=== PATIENT | male | born 1960 | race Asian ===

== ENCOUNTER 2019-04-11 11:02 | Inpatient (IN) | payer MEDICAID, OTHER ==
[~2019-04-11] VITALS: Ht 172.7 cm; Wt 63.0 kg
--- NOTE | 2019-04-11 11:28 | NUR ---
PT BASHIR GUZMAN AFTER BEING FOUND DOWN AT HOME. FOUND IN A POOL OF VOMIT. HAS LLE AND LUE WEAKNESS- BOTH ARE FLACCID. THIS IS NEW FOR THE PT. LAST KNOWN WELL TIME LAST NIGHT. PT HAS BEEN TAKEN TO AND IS NOW BACK FROM [place]. PT'S SISTER IS AT BEDSIDE HELPING WITH MEDICAL HX AND MED REC. PT IS NOT VERBAL AT THIS TIME. MED REC COMPLETED TO THE BEST OF THIS RN'S ABILITY. PT CURRENTLY RESTING ON [employer]. NADN. VSS. CONNECTED TO MONITOR. PER THOMAS BS 117. PT PRESENT WITH FACIAL ABSCESS TO RIGHT SIDE OF FOREHEAD THAT HAS BEEN PRESENT FOR MONTHS PER SISTER.
[2019-04-11] MEDS ORDERED: ALLOPURINOL (11:32)
--- NOTE | 2019-04-11 11:38 | NUR ---
RADIOLOGY AT BEDSIDE.
[2019-04-11 11:51] LABS: BASOPHILS # (AUTO) 0.02 x10^3/uL (0-0.1); BASOPHILS % (AUTO) 0 % (0-1); EOSINOPHILS # (AUTO) 0.01 x10^3/uL (0-0.4); EOSINOPHILS % (AUTO) 0 % (1-7); LYMPHOCYTES # (AUTO) 0.98 x10^3/uL (1-3.4); LYMPHOCYTES % (AUTO) 7 % (22-44); MD NO; MEAN CORPUSCULAR HEMOGLOBIN 33.5 pg (27.5-34.5); MEAN CORPUSCULAR HGB CONC 33.5 g/dL (33.2-36.2); MEAN PLATELET VOLUME 6.8 fL (7.4-10.4); MONOCYTES # (AUTO) 1.09 x10^3/uL (0.2-0.8); MONOCYTES % (AUTO) 7 % (2-9); NEUTROPHILS # (AUTO) 12.85 x10^3/uL (1.8-6.8); NEUTROPHILS % (AUTO) 86 % (42-75); PLATELET COUNT 313 x10^3/uL (130-400); RED BLOOD COUNT 5.31 x10^6/uL (4.38-5.82); RED CELL DISTRIBUTION WIDTH 12.4 % (9.4-14.8)
--- NOTE | 2019-04-11 12:01 | NUR ---
PT STRAIGHT CATH'D AT THIS TIME. URINE COLLECTED. PT RESTING ON MILDRED. BILL. HYPERTENSIVE- WILL ALERT .
[2019-04-11 12:05] LABS: ALANINE AMINOTRANSFERASE 36 U/L (12-78); ALBUMIN 4.1 g/dL (3.4-5.0); ANION GAP 10 mmol/L (5-15); CALCIUM 8.9 mg/dL (8.5-10.1); CHLORIDE 106 mmol/L (98-107); CREATININE 0.95 mg/dL (0.7-1.3)
[2019-04-11 12:06] LABS: ALKALINE PHOSPHATASE 80 U/L (45-117); TOTAL PROTEIN 8.9 g/dL (6.4-8.2)
--- NOTE | 2019-04-11 12:08 | NUR ---
PT NOTED TO HAVE CEREBRAL BLEED W 12 MM SHIFT PT MOVVED TO T3 ON FULL MONITOR
--- NOTE | 2019-04-11 12:09 | NUR ---
REPORT GIVEN TO KEERTHI ZARAGOZA.
[2019-04-11 12:12] LABS: INTERNATIONAL NORMALIZED RATIO 1.01 (0.93-1.1); PROTHROMBIN TIME 10.6 Seconds (9.6-11.5)
[2019-04-11 12:12] LABS: MICROSCOPIC NOT IND
[2019-04-11 12:13] LABS: CULTURE INDICATED? NO
[2019-04-11 12:27] LABS: AMPHETAMINE SCREEN, URINE Negative (Negative)
[2019-04-11 12:28] LABS: BARBITURATE SCREEN, URINE Negative (Negative); BENZODIAZEPINE SCREEN, URINE Negative (Negative); CANNABINOID SCREEN, URINE Negative (Negative); COCAINE SCREEN, URINE Negative (Negative); METHADONE SCREEN, URINE Negative (Negative); OPIATE SCREEN, URINE Negative (Negative)
[2019-04-11] MEDS ORDERED: LABETALOL 5 MG/ML SYR. (IV ONLY) IVPush ONE (12:30)
[2019-04-11] MEDS ORDERED: LABETALOL 5MG/ML, 20ML IVPush ONE (12:30)
--- NOTE | 2019-04-11 12:33 | NUR ---
O2 STARTED NC AT 2 LPM PT REMAINS RESPONSIVE TO LOUD VERBAL OF PAINFUL STIMULI WILL FOLLOW LIMITED COMMANDS
[2019-04-11] MEDS ORDERED: EPINEPHRINE 1 MG/ML, 1ML ONE (12:49)
[2019-04-11] MEDS ORDERED: BUPIVACAINE/PF 0.5% ONE (12:49)
[2019-04-11] MEDS ORDERED: THROMBIN 5,000 UNIT VIAL TP ONE (12:49)
[2019-04-11] MEDS ORDERED: BACITRACIN 50,000 UNIT ONE (12:49)
[2019-04-11] MEDS ORDERED: LABETALOL 5MG/ML, 20ML ONE (12:50)
[2019-04-11] MEDS ORDERED: PHENYLEPHRINE 10 MG/ML ONE (12:50)
[2019-04-11] MEDS ORDERED: FENTANYL PF 250 MCG/5ML ONE (12:53)
[2019-04-11] MEDS ORDERED: MANNITOL PMX 20% 500 ML ONE (12:55)
[2019-04-11] MEDS ORDERED: LEVETIRACETAM 1,000 MG in SODIUM CHLORIDE 0.9% 100 ML IV ONE (13:00)
--- NOTE | 2019-04-11 13:01 | NUR ---
REPORT TO OR GIVEN TRANSPORTED TO OR NO CONDITION CHANGE
[2019-04-11] MEDS ORDERED: PROPOFOL 50 ML ONE (13:48)
[2019-04-11] MEDS ORDERED: ROCURONIUM 10MG/ML,5ML ONE ×2 (13:49)
[2019-04-11] MEDS ORDERED: DEXAMETHASONE 4 MG/ML, 1ML ONE (13:49)
[2019-04-11] MEDS ORDERED: PROPOFOL 10 MG/ML, 20ML ONE (13:49)
[2019-04-11] MEDS ORDERED: CEFAZOLIN 1,000 MG ONE (13:49)
[2019-04-11] MEDS ORDERED: ACETAMINOPHEN 325 MG TABLET PO PRN (15:00)
[2019-04-11] MEDS ORDERED: ONDANSETRON 2MG/ML, 2ML IVPush PRN (15:00)
[2019-04-11] MEDS: SODIUM CHLORIDE 0.9% 1,000 ML IV SCH (15:29)
[2019-04-11] MEDS ORDERED: SENNA 176 MG/5 ML ORAL SOL NG PRN (15:30)
[2019-04-11] MEDS ORDERED: PHARMACY MAY ADJ FOR RENAL FX MC SCH (15:30)
[2019-04-11] MEDS ORDERED: DEXTROSE 4 GM TAB.CHEW PO PRN (15:30)
[2019-04-11] MEDS ORDERED: SENNA/DOCUSATE TABLET NG PRN (15:30)
[2019-04-11] MEDS ORDERED: LIDOCAINE-MPF 1%, 2ML ENDO PRN (15:30)
[2019-04-11] MEDS ORDERED: BISACODYL 10 MG SUPP PR PRN (15:30)
[2019-04-11] MEDS ORDERED: DEXTROSE 50%, 50ML SYRINGE IVPush PRN (15:30)
[2019-04-11] MEDS ORDERED: GLUCAGON 1 MG IM PRN (15:30)
[2019-04-11] MEDS: AMPICILLIN/SULBACTAM 3 GM in SODIUM CHLORIDE 0.9% 100 ML IV SCH ×2 (16:14→21:09)
[2019-04-11] MEDS: PROPOFOL 100 ML IV PRN ×2 (16:21→23:13)
[2019-04-11] MEDS ORDERED: LACTATED RINGERS 500 ML IVBOLUS ONE (17:00)
[2019-04-11 19:00] LABS: TROPONIN I < 0.015 ng/mL (0.000-0.045)
[2019-04-11] MEDS: FENTANYL PF 100 MCG/2ML IVPush PRN ×2 (19:43→20:08)
[2019-04-11] MEDS: LEVETIRACETAM 500 MG in SODIUM CHLORIDE 0.9% 100 ML IV SCH (19:46)
[2019-04-11] MEDS: FAMOTIDINE 20 MG/2 ML IVPush SCH (21:09)
[2019-04-11] MEDS: SODIUM CHLORIDE FLUSH 10ML SYR IVF SCH (21:09)
[2019-04-11 22:30] LABS: TROPONIN I < 0.015 ng/mL (0.000-0.045)
[2019-04-12] MEDS: FENTANYL PF 100 MCG/2ML IVPush PRN ×5 (01:30→19:39)
[2019-04-12] MEDS: SODIUM CHLORIDE 0.9% 1,000 ML IV SCH ×2 (02:21→12:44)
[2019-04-12] MEDS: AMPICILLIN/SULBACTAM 3 GM in SODIUM CHLORIDE 0.9% 100 ML IV SCH ×2 (02:31→09:06)
[2019-04-12 04:00] VITALS: BP 118/58
[2019-04-12 04:30] LABS: MEAN CORPUSCULAR HEMOGLOBIN 33.6 pg (27.5-34.5); MEAN CORPUSCULAR HGB CONC 33.5 g/dL (33.2-36.2); MEAN CORPUSCULAR VOLUME 100.4 fL (81-97); PLATELET COUNT 266 x10^3/uL (130-400); RED BLOOD COUNT 4.13 x10^6/uL (4.38-5.82); RED CELL DISTRIBUTION WIDTH 12.6 % (9.4-14.8)
[2019-04-12 04:33] LABS: ALANINE AMINOTRANSFERASE 24 U/L (12-78); ALBUMIN 2.9 g/dL (3.4-5.0); ANION GAP 8 mmol/L (5-15); CALCIUM 7.1 mg/dL (8.5-10.1); CHLORIDE 111 mmol/L (98-107); CREATININE 0.93 mg/dL (0.7-1.3)
[2019-04-12 04:35] LABS: ALKALINE PHOSPHATASE 56 U/L (45-117); BILIRUBIN,TOTAL 0.6 mg/dL (0.2-1.0); TOTAL PROTEIN 6.6 g/dL (6.4-8.2)
[2019-04-12 05:22] LABS: BASOPHILS # (AUTO) 0.04 x10^3/uL (0-0.1); BASOPHILS % (AUTO) 0 % (0-1); EOSINOPHILS # (AUTO) 0.01 x10^3/uL (0-0.4); EOSINOPHILS % (AUTO) 0 % (1-7); LYMPHOCYTES # (AUTO) 1.44 x10^3/uL (1-3.4); LYMPHOCYTES % (AUTO) 8 % (22-44); MD SCAN; MONOCYTES # (AUTO) 2.13 x10^3/uL (0.2-0.8); MONOCYTES % (AUTO) 11 % (2-9); NEUTROPHILS % (AUTO) 81 % (42-75)
[2019-04-12] MEDS: PROPOFOL 100 ML IV PRN ×3 (06:39→18:09)
[2019-04-12] MEDS: LEVETIRACETAM 500 MG in SODIUM CHLORIDE 0.9% 100 ML IV SCH ×2 (08:04→19:40)
[2019-04-12] MEDS: SENNA/DOCUSATE TABLET PO SCH (09:00)
[2019-04-12] MEDS: SODIUM CHLORIDE FLUSH 10ML SYR IVF SCH ×2 (09:06→20:58)
[2019-04-12] MEDS: FAMOTIDINE 20 MG/2 ML IVPush SCH ×2 (09:06→20:58)
[2019-04-12] MEDS ORDERED: POTASSIUM CHLORIDE 40 MEQ in SODIUM CHLORIDE 0.9% 500 ML IV ONE (09:30)
[2019-04-12 09:41] LABS: MICROSCOPIC INDICATED
[2019-04-12 09:56] LABS: CULTURE INDICATED? NO
[2019-04-12] MEDS: MEROPENEM 1 GM in SODIUM CHLORIDE 0.9% 100 ML IV SCH ×2 (10:21→18:08)
--- NOTE | 2019-04-12 10:31 | NUR ---
TF GOAL: w/ propofol: PROMOTE @ 70ml/hr off propofol: 75ml/hr
[2019-04-12] MEDS: LABETALOL 5MG/ML, 20ML IVPush PRN (20:10)
[2019-04-12] MEDS: ENALAPRILAT 1.25 MG/ML, 2ML IVPush PRN (20:46)
[2019-04-12] MEDS: morphine SULFATE 10 MG/ML, 1ML IVPush PRN (20:53)
[2019-04-13] MEDS: PROPOFOL 100 ML IV PRN ×3 (01:26→20:01)
[2019-04-13] MEDS: MEROPENEM 1 GM in SODIUM CHLORIDE 0.9% 100 ML IV SCH ×3 (01:41→18:28)
[2019-04-13 03:52] LABS: MEAN CORPUSCULAR HEMOGLOBIN 33.7 pg (27.5-34.5); MEAN CORPUSCULAR HGB CONC 33.6 g/dL (33.2-36.2); MEAN CORPUSCULAR VOLUME 100.4 fL (81-97); PLATELET COUNT 236 x10^3/uL (130-400); RED BLOOD COUNT 3.69 x10^6/uL (4.38-5.82); RED CELL DISTRIBUTION WIDTH 12.8 % (9.4-14.8)
[2019-04-13 04:00] VITALS: BP 152/72
[2019-04-13] MEDS: FENTANYL PF 100 MCG/2ML IVPush PRN ×3 (04:06→14:42)
[2019-04-13 04:11] LABS: BASOPHILS # (AUTO) 0.01 x10^3/uL (0-0.1); BASOPHILS % (AUTO) 0 % (0-1); EOSINOPHILS # (AUTO) 0.02 x10^3/uL (0-0.4); EOSINOPHILS % (AUTO) 0 % (1-7); LYMPHOCYTES # (AUTO) 1.22 x10^3/uL (1-3.4); LYMPHOCYTES % (AUTO) 10 % (22-44); MD SCAN; MONOCYTES # (AUTO) 1.04 x10^3/uL (0.2-0.8); MONOCYTES % (AUTO) 8 % (2-9); NEUTROPHILS # (AUTO) 10.29 x10^3/uL (1.8-6.8); NEUTROPHILS % (AUTO) 82 % (42-75)
[2019-04-13 05:05] LABS: ANION GAP 5 mmol/L (5-15); CALCIUM 7.8 mg/dL (8.5-10.1); CHLORIDE 113 mmol/L (98-107); CREATININE 0.77 mg/dL (0.7-1.3)
[2019-04-13] MEDS: SODIUM CHLORIDE 0.9% 1,000 ML IV SCH ×2 (05:06→16:56)
[2019-04-13] MEDS: SENNA/DOCUSATE TABLET PO SCH (07:58)
[2019-04-13] MEDS: LEVETIRACETAM 500 MG in SODIUM CHLORIDE 0.9% 100 ML IV SCH ×2 (07:58→20:04)
[2019-04-13] MEDS: FAMOTIDINE 20 MG/2 ML IVPush SCH ×2 (07:58→22:01)
[2019-04-13] MEDS: SODIUM CHLORIDE FLUSH 10ML SYR IVF SCH ×2 (09:45→22:02)
[2019-04-13] MEDS ORDERED: FUROSEMIDE 20 MG/2 ML IV ONE (10:00)
[2019-04-14 01:09] LABS: ANION GAP 4 mmol/L (5-15); CALCIUM 8.2 mg/dL (8.5-10.1); CHLORIDE 112 mmol/L (98-107); CREATININE 0.77 mg/dL (0.7-1.3)
[2019-04-14 01:17] LABS: OSMOLALITY,URINE 328 mOsm/kg (500-850)
[2019-04-14] MEDS: MEROPENEM 1 GM in SODIUM CHLORIDE 0.9% 100 ML IV SCH ×3 (01:48→18:11)
[2019-04-14] MEDS: PROPOFOL 100 ML IV PRN ×5 (01:48→22:46)
[2019-04-14] MEDS: SODIUM CHLORIDE 0.9% 1,000 ML IV SCH ×3 (01:49→22:45)
[2019-04-14 02:01] LABS: SODIUM,URINE RANDOM 124 mmol/L
[2019-04-14] MEDS: FENTANYL PF 100 MCG/2ML IVPush PRN ×4 (03:56→20:52)
[2019-04-14 05:12] LABS: BASOPHILS # (AUTO) 0.01 x10^3/uL (0-0.1); BASOPHILS % (AUTO) 0 % (0-1); EOSINOPHILS # (AUTO) 0.06 x10^3/uL (0-0.4); EOSINOPHILS % (AUTO) 1 % (1-7); LYMPHOCYTES # (AUTO) 1.18 x10^3/uL (1-3.4); LYMPHOCYTES % (AUTO) 12 % (22-44); MD NO; MEAN CORPUSCULAR HEMOGLOBIN 33.7 pg (27.5-34.5); MEAN CORPUSCULAR HGB CONC 33.7 g/dL (33.2-36.2); MEAN PLATELET VOLUME 6.9 fL (7.4-10.4); MONOCYTES # (AUTO) 0.86 x10^3/uL (0.2-0.8); MONOCYTES % (AUTO) 9 % (2-9); NEUTROPHILS # (AUTO) 7.39 x10^3/uL (1.8-6.8); NEUTROPHILS % (AUTO) 78 % (42-75); PLATELET COUNT 265 x10^3/uL (130-400); RED BLOOD COUNT 3.59 x10^6/uL (4.38-5.82); RED CELL DISTRIBUTION WIDTH 12.5 % (9.4-14.8)
[2019-04-14 05:19] LABS: ANION GAP 6 mmol/L (5-15); CALCIUM 8.1 mg/dL (8.5-10.1); CHLORIDE 112 mmol/L (98-107)
[2019-04-14 05:47] LABS: CREATININE 0.69 mg/dL (0.7-1.3); TRIGLYCERIDES 239 mg/dL (50-200)
[2019-04-14] MEDS: SODIUM CHLORIDE FLUSH 10ML SYR IVF SCH ×2 (07:20→20:52)
[2019-04-14] MEDS: LEVETIRACETAM 500 MG in SODIUM CHLORIDE 0.9% 100 ML IV SCH ×2 (07:44→20:06)
[2019-04-14] MEDS: FAMOTIDINE 20 MG/2 ML IVPush SCH ×2 (09:05→20:52)
[2019-04-14] MEDS: SENNA/DOCUSATE TABLET PO SCH (09:05)
[2019-04-14] MEDS: LACTULOSE 20 GM/30 ML UDC NG PRN (09:08)
[2019-04-14] MEDS ORDERED: POTASSIUM CHLORIDE 40 MEQ in SODIUM CHLORIDE 0.9% 500 ML IV ONE (09:30)
[2019-04-14] MEDS ORDERED: MANNITOL 0.25 GM/ML, 50ML IVPush PRN (15:00)
[2019-04-14] MEDS ORDERED: NOREPINEPHRINE 4 MG in SODIUM CHLORIDE 0.9% 246 ML IV PRN (15:30)
[2019-04-14 19:12] LABS: ANION GAP 4 mmol/L (5-15); CALCIUM 8.2 mg/dL (8.5-10.1); CHLORIDE 111 mmol/L (98-107); CREATININE 0.71 mg/dL (0.7-1.3)
[2019-04-14 19:23] LABS: OSMOLALITY,URINE 728 mOsm/kg (500-850)
[2019-04-14] MEDS: POLYETHYLENE GLYCOL 17 GM PACKET PO PRN (21:14)
[2019-04-15] MEDS: FENTANYL PF 100 MCG/2ML IVPush PRN (00:32)
[2019-04-15] MEDS: MEROPENEM 1 GM in SODIUM CHLORIDE 0.9% 100 ML IV SCH ×3 (02:07→18:13)
[2019-04-15] MEDS: PROPOFOL 100 ML IV PRN (03:01)
[2019-04-15] MEDS: morphine SULFATE 10 MG/ML, 1ML IVPush PRN ×4 (03:01→22:19)
[2019-04-15 04:09] LABS: BASOPHILS # (AUTO) 0.03 x10^3/uL (0-0.1); BASOPHILS % (AUTO) 0 % (0-1); EOSINOPHILS # (AUTO) 0.17 x10^3/uL (0-0.4); EOSINOPHILS % (AUTO) 2 % (1-7); LYMPHOCYTES # (AUTO) 1.09 x10^3/uL (1-3.4); LYMPHOCYTES % (AUTO) 13 % (22-44); MD NO; MEAN CORPUSCULAR HEMOGLOBIN 33.6 pg (27.5-34.5); MEAN CORPUSCULAR HGB CONC 33.6 g/dL (33.2-36.2); MEAN PLATELET VOLUME 6.8 fL (7.4-10.4); MONOCYTES % (AUTO) 9 % (2-9); NEUTROPHILS # (AUTO) 6.47 x10^3/uL (1.8-6.8); NEUTROPHILS % (AUTO) 76 % (42-75); PLATELET COUNT 281 x10^3/uL (130-400); RED BLOOD COUNT 3.63 x10^6/uL (4.38-5.82); RED CELL DISTRIBUTION WIDTH 12.3 % (9.4-14.8)
[2019-04-15 04:19] LABS: ANION GAP 4 mmol/L (5-15); CHLORIDE 109 mmol/L (98-107)
[2019-04-15] MEDS: LEVETIRACETAM 500 MG in SODIUM CHLORIDE 0.9% 100 ML IV SCH ×2 (08:22→19:37)
[2019-04-15] MEDS: SODIUM CHLORIDE FLUSH 10ML SYR IVF SCH ×2 (08:22→22:19)
[2019-04-15] MEDS: SODIUM CHLORIDE 0.9% 1,000 ML IV SCH ×2 (08:50→19:54)
[2019-04-15] MEDS: SENNA/DOCUSATE TABLET PO SCH (08:50)
[2019-04-15] MEDS: FAMOTIDINE 20 MG/2 ML IVPush SCH ×2 (08:50→22:19)
[2019-04-15] MEDS: LACTULOSE 20 GM/30 ML UDC NG PRN (19:25)
[2019-04-15] MEDS: ENALAPRILAT 1.25 MG/ML, 2ML IVPush PRN (22:47)
[2019-04-16] MEDS: BISACODYL 10 MG SUPP PR PRN (01:33)
[2019-04-16] MEDS: MEROPENEM 1 GM in SODIUM CHLORIDE 0.9% 100 ML IV SCH ×3 (02:09→18:00)
[2019-04-16] MEDS: morphine SULFATE 10 MG/ML, 1ML IVPush PRN ×4 (02:51→16:05)
[2019-04-16 03:51] LABS: BASOPHILS # (AUTO) 0.02 x10^3/uL (0-0.1); BASOPHILS % (AUTO) 0 % (0-1); EOSINOPHILS # (AUTO) 0.12 x10^3/uL (0-0.4); EOSINOPHILS % (AUTO) 2 % (1-7); LYMPHOCYTES # (AUTO) 1.44 x10^3/uL (1-3.4); LYMPHOCYTES % (AUTO) 18 % (22-44); MD NO; MEAN CORPUSCULAR HEMOGLOBIN 33.3 pg (27.5-34.5); MEAN CORPUSCULAR HGB CONC 33.8 g/dL (33.2-36.2); MEAN CORPUSCULAR VOLUME 98.6 fL (81-97); MEAN PLATELET VOLUME 6.8 fL (7.4-10.4); MONOCYTES # (AUTO) 0.77 x10^3/uL (0.2-0.8); MONOCYTES % (AUTO) 10 % (2-9); NEUTROPHILS # (AUTO) 5.63 x10^3/uL (1.8-6.8); NEUTROPHILS % (AUTO) 71 % (42-75); PLATELET COUNT 328 x10^3/uL (130-400); RED BLOOD COUNT 3.76 x10^6/uL (4.38-5.82); RED CELL DISTRIBUTION WIDTH 12.2 % (9.4-14.8)
[2019-04-16 04:01] LABS: ANION GAP 6 mmol/L (5-15); CALCIUM 8.1 mg/dL (8.5-10.1); CHLORIDE 106 mmol/L (98-107); CREATININE 0.67 mg/dL (0.7-1.3)
[2019-04-16] MEDS: ENALAPRILAT 1.25 MG/ML, 2ML IVPush PRN (04:04)
[2019-04-16] MEDS: SODIUM CHLORIDE 0.9% 1,000 ML IV SCH ×2 (06:45→18:00)
[2019-04-16] MEDS: LEVETIRACETAM 500 MG in SODIUM CHLORIDE 0.9% 100 ML IV SCH ×2 (08:11→19:58)
[2019-04-16] MEDS: SENNA/DOCUSATE TABLET PO SCH (09:00)
[2019-04-16] MEDS: FAMOTIDINE 20 MG/2 ML IVPush SCH ×2 (09:17→21:40)
[2019-04-16] MEDS: SODIUM CHLORIDE FLUSH 10ML SYR IVF SCH ×2 (09:17→21:41)
[2019-04-17] MEDS: morphine SULFATE 10 MG/ML, 1ML IVPush PRN ×3 (00:02→19:26)
[2019-04-17] MEDS: MEROPENEM 1 GM in SODIUM CHLORIDE 0.9% 100 ML IV SCH ×3 (02:16→18:01)
[2019-04-17] MEDS: SODIUM CHLORIDE 0.9% 1,000 ML IV SCH (05:10)
[2019-04-17 05:29] LABS: MEAN CORPUSCULAR HEMOGLOBIN 33.3 pg (27.5-34.5); MEAN CORPUSCULAR HGB CONC 33.7 g/dL (33.2-36.2); MEAN PLATELET VOLUME 6.2 fL (7.4-10.4); PLATELET COUNT 365 x10^3/uL (130-400); RED BLOOD COUNT 3.85 x10^6/uL (4.38-5.82); RED CELL DISTRIBUTION WIDTH 12.4 % (9.4-14.8)
[2019-04-17 05:39] LABS: ANION GAP 6 mmol/L (5-15); CHLORIDE 107 mmol/L (98-107); CREATININE 0.71 mg/dL (0.7-1.3); TRIGLYCERIDES 154 mg/dL (50-200)
[2019-04-17 05:42] LABS: CREATINE KINASE, TOTAL 176 U/L (39-308)
[2019-04-17 05:53] LABS: BASOPHILS % (AUTO) 0 % (0-1); EOSINOPHILS # (AUTO) 0.28 x10^3/uL (0-0.4); EOSINOPHILS % (AUTO) 3 % (1-7); LYMPHOCYTES % (AUTO) 12 % (22-44); MD SCAN; MONOCYTES # (AUTO) 0.41 x10^3/uL (0.2-0.8); MONOCYTES % (AUTO) 4 % (2-9); NEUTROPHILS # (AUTO) 8.32 x10^3/uL (1.8-6.8); NEUTROPHILS % (AUTO) 81 % (42-75)
[2019-04-17] MEDS: LEVETIRACETAM 500 MG in SODIUM CHLORIDE 0.9% 100 ML IV SCH ×2 (08:42→21:34)
[2019-04-17] MEDS: SENNA/DOCUSATE TABLET PO SCH (08:43)
[2019-04-17] MEDS: FAMOTIDINE 20 MG/2 ML IVPush SCH ×2 (08:43→21:34)
[2019-04-17] MEDS: SODIUM CHLORIDE FLUSH 10ML SYR IVF SCH ×2 (08:51→21:35)
[2019-04-17] MEDS ORDERED: SODIUM CHLORIDE 0.9% 1,000 ML IV SCH (09:00)
[2019-04-17] MEDS: hydrALAzine 20 MG/ML, 1ML IV PRN ×3 (12:50→21:46)
[2019-04-17] MEDS: ENALAPRILAT 1.25 MG/ML, 2ML IVPush PRN ×2 (13:14→18:00)
[2019-04-17] MEDS: LABETALOL 5MG/ML, 20ML IVPush PRN (18:59)
[2019-04-18] MEDS: MEROPENEM 1 GM in SODIUM CHLORIDE 0.9% 100 ML IV SCH ×3 (03:15→18:00)
[2019-04-18 04:16] LABS: BASOPHILS # (AUTO) 0.01 x10^3/uL (0-0.1); BASOPHILS % (AUTO) 0 % (0-1); EOSINOPHILS # (AUTO) 0.11 x10^3/uL (0-0.4); EOSINOPHILS % (AUTO) 1 % (1-7); LYMPHOCYTES # (AUTO) 0.77 x10^3/uL (1-3.4); LYMPHOCYTES % (AUTO) 7 % (22-44); MD NO; MEAN CORPUSCULAR HEMOGLOBIN 33.6 pg (27.5-34.5); MEAN CORPUSCULAR HGB CONC 33.5 g/dL (33.2-36.2); MEAN CORPUSCULAR VOLUME 100.2 fL (81-97); MEAN PLATELET VOLUME 6.6 fL (7.4-10.4); MONOCYTES # (AUTO) 1.03 x10^3/uL (0.2-0.8); MONOCYTES % (AUTO) 9 % (2-9); NEUTROPHILS # (AUTO) 9.61 x10^3/uL (1.8-6.8); NEUTROPHILS % (AUTO) 83 % (42-75); PLATELET COUNT 409 x10^3/uL (130-400); RED CELL DISTRIBUTION WIDTH 12.3 % (9.4-14.8)
[2019-04-18 04:22] LABS: ANION GAP 6 mmol/L (5-15); CALCIUM 8.4 mg/dL (8.5-10.1); CHLORIDE 104 mmol/L (98-107); CREATININE 0.78 mg/dL (0.7-1.3)
[2019-04-18] MEDS: morphine SULFATE 10 MG/ML, 1ML IVPush PRN (04:51)
[2019-04-18] MEDS: ENALAPRILAT 1.25 MG/ML, 2ML IVPush PRN (06:38)
[2019-04-18] MEDS: LEVETIRACETAM 500 MG in SODIUM CHLORIDE 0.9% 100 ML IV SCH ×2 (07:44→19:32)
[2019-04-18] MEDS ORDERED: SCOPOLAMINE PATCH, 1.5MG PATCH.TD72 TD ONE (08:30)
[2019-04-18] MEDS: LABETALOL 5MG/ML, 20ML IVPush PRN ×2 (09:49→22:24)
[2019-04-18] MEDS: SODIUM CHLORIDE FLUSH 10ML SYR IVF SCH ×2 (09:50→20:44)
[2019-04-18] MEDS: SCOPOLAMINE PATCH, 1.5MG PATCH.TD72 TD SCH (10:00)
[2019-04-18] MEDS: FAMOTIDINE 20 MG/2 ML IVPush SCH ×2 (10:36→20:44)
[2019-04-18] MEDS: SENNA/DOCUSATE TABLET PO SCH (10:37)
[2019-04-19] MEDS: morphine SULFATE 10 MG/ML, 1ML IVPush PRN ×3 (00:08→23:22)
[2019-04-19] MEDS: ENALAPRILAT 1.25 MG/ML, 2ML IVPush PRN (02:37)
[2019-04-19 04:28] LABS: MEAN CORPUSCULAR HEMOGLOBIN 34.1 pg (27.5-34.5); MEAN CORPUSCULAR HGB CONC 34.1 g/dL (33.2-36.2); MEAN CORPUSCULAR VOLUME 99.9 fL (81-97); MEAN PLATELET VOLUME 6.4 fL (7.4-10.4); PLATELET COUNT 445 x10^3/uL (130-400); RED BLOOD COUNT 3.81 x10^6/uL (4.38-5.82); RED CELL DISTRIBUTION WIDTH 12.2 % (9.4-14.8)
[2019-04-19 04:36] LABS: ANION GAP 4 mmol/L (5-15); CALCIUM 8.5 mg/dL (8.5-10.1); CHLORIDE 105 mmol/L (98-107)
[2019-04-19 04:37] LABS: CREATININE 0.76 mg/dL (0.7-1.3)
[2019-04-19 05:59] LABS: BASOPHILS # (AUTO) 0.02 x10^3/uL (0-0.1); BASOPHILS % (AUTO) 0 % (0-1); EOSINOPHILS # (AUTO) 0.19 x10^3/uL (0-0.4); EOSINOPHILS % (AUTO) 2 % (1-7); LYMPHOCYTES # (AUTO) 1.28 x10^3/uL (1-3.4); LYMPHOCYTES % (AUTO) 10 % (22-44); MD SCAN; MONOCYTES % (AUTO) 12 % (2-9); NEUTROPHILS # (AUTO) 9.85 x10^3/uL (1.8-6.8); NEUTROPHILS % (AUTO) 77 % (42-75)
[2019-04-19] MEDS: SODIUM CHLORIDE FLUSH 10ML SYR IVF SCH ×2 (08:28→21:59)
[2019-04-19] MEDS: LEVETIRACETAM 500 MG in SODIUM CHLORIDE 0.9% 100 ML IV SCH (08:28)
[2019-04-19] MEDS: SENNA/DOCUSATE TABLET PO SCH (09:10)
[2019-04-19] MEDS: FAMOTIDINE 20 MG/2 ML IVPush SCH ×2 (09:10→21:59)
[2019-04-20] MEDS: POLYETHYLENE GLYCOL 17 GM PACKET PO PRN (01:28)
[2019-04-20] MEDS: morphine SULFATE 10 MG/ML, 1ML IVPush PRN (03:12)
[2019-04-20 04:18] LABS: BASOPHILS # (AUTO) 0.02 x10^3/uL (0-0.1); BASOPHILS % (AUTO) 0 % (0-1); EOSINOPHILS % (AUTO) 2 % (1-7); LYMPHOCYTES # (AUTO) 1.66 x10^3/uL (1-3.4); LYMPHOCYTES % (AUTO) 14 % (22-44); MD NO; MEAN CORPUSCULAR HEMOGLOBIN 33.5 pg (27.5-34.5); MEAN CORPUSCULAR HGB CONC 33.3 g/dL (33.2-36.2); MEAN CORPUSCULAR VOLUME 100.7 fL (81-97); MEAN PLATELET VOLUME 6.4 fL (7.4-10.4); MONOCYTES # (AUTO) 1.29 x10^3/uL (0.2-0.8); MONOCYTES % (AUTO) 11 % (2-9); NEUTROPHILS # (AUTO) 8.86 x10^3/uL (1.8-6.8); NEUTROPHILS % (AUTO) 74 % (42-75); PLATELET COUNT 524 x10^3/uL (130-400); RED BLOOD COUNT 4.02 x10^6/uL (4.38-5.82); RED CELL DISTRIBUTION WIDTH 12.1 % (9.4-14.8)
[2019-04-20 04:26] LABS: ANION GAP 7 mmol/L (5-15); CALCIUM 8.6 mg/dL (8.5-10.1); CHLORIDE 100 mmol/L (98-107); CREATININE 0.79 mg/dL (0.7-1.3); TRIGLYCERIDES 222 mg/dL (50-200)
[2019-04-20] MEDS: ACETAMINOPHEN 650 MG/20.3 ML UDC PO PRN (08:24)
[2019-04-20] MEDS: FAMOTIDINE 20 MG/2 ML IVPush SCH ×2 (08:24→20:30)
[2019-04-20] MEDS: SODIUM CHLORIDE FLUSH 10ML SYR IVF SCH ×2 (08:25→20:30)
[2019-04-20] MEDS: SENNA/DOCUSATE TABLET PO SCH (09:22)
[2019-04-21 04:50] LABS: MEAN CORPUSCULAR HEMOGLOBIN 33.6 pg (27.5-34.5); MEAN CORPUSCULAR HGB CONC 33.5 g/dL (33.2-36.2); MEAN CORPUSCULAR VOLUME 100.3 fL (81-97); MEAN PLATELET VOLUME 6.4 fL (7.4-10.4); PLATELET COUNT 616 x10^3/uL (130-400); RED BLOOD COUNT 4.25 x10^6/uL (4.38-5.82)
[2019-04-21 04:59] LABS: ANION GAP 8 mmol/L (5-15); CALCIUM 9.6 mg/dL (8.5-10.1); CHLORIDE 99 mmol/L (98-107); CREATININE 0.95 mg/dL (0.7-1.3)
[2019-04-21 05:05] LABS: BASOPHILS # (AUTO) 0.03 x10^3/uL (0-0.1); BASOPHILS % (AUTO) 0 % (0-1); EOSINOPHILS # (AUTO) 0.23 x10^3/uL (0-0.4); EOSINOPHILS % (AUTO) 2 % (1-7); LYMPHOCYTES # (AUTO) 1.39 x10^3/uL (1-3.4); LYMPHOCYTES % (AUTO) 9 % (22-44); MD SCAN; MONOCYTES # (AUTO) 1.54 x10^3/uL (0.2-0.8); MONOCYTES % (AUTO) 10 % (2-9); NEUTROPHILS # (AUTO) 11.91 x10^3/uL (1.8-6.8); NEUTROPHILS % (AUTO) 79 % (42-75)
[2019-04-21] MEDS: morphine SULFATE 10 MG/ML, 1ML IVPush PRN ×2 (05:53→14:36)
[2019-04-21] MEDS: FAMOTIDINE 20 MG/2 ML IVPush SCH ×2 (08:23→21:37)
[2019-04-21] MEDS: SENNA/DOCUSATE TABLET PO SCH (08:23)
[2019-04-21] MEDS: SODIUM CHLORIDE FLUSH 10ML SYR IVF SCH ×2 (08:24→21:37)
[2019-04-21] MEDS: SCOPOLAMINE PATCH, 1.5MG PATCH.TD72 TD SCH (10:30)
[2019-04-21] MEDS: LABETALOL 5MG/ML, 20ML IVPush PRN (14:51)
[2019-04-22 04:27] LABS: MEAN CORPUSCULAR HEMOGLOBIN 33.2 pg (27.5-34.5); MEAN CORPUSCULAR HGB CONC 33.4 g/dL (33.2-36.2); MEAN CORPUSCULAR VOLUME 99.5 fL (81-97); MEAN PLATELET VOLUME 6.4 fL (7.4-10.4); PLATELET COUNT 634 x10^3/uL (130-400); RED BLOOD COUNT 4.28 x10^6/uL (4.38-5.82); RED CELL DISTRIBUTION WIDTH 12.1 % (9.4-14.8)
[2019-04-22 04:39] LABS: ANION GAP 8 mmol/L (5-15); CALCIUM 9.2 mg/dL (8.5-10.1); CHLORIDE 99 mmol/L (98-107)
[2019-04-22 04:42] LABS: CREATININE 0.99 mg/dL (0.7-1.3)
[2019-04-22 04:50] LABS: BASOPHILS # (AUTO) 0.02 x10^3/uL (0-0.1); BASOPHILS % (AUTO) 0 % (0-1); EOSINOPHILS # (AUTO) 0.14 x10^3/uL (0-0.4); EOSINOPHILS % (AUTO) 1 % (1-7); LYMPHOCYTES # (AUTO) 1.79 x10^3/uL (1-3.4); LYMPHOCYTES % (AUTO) 10 % (22-44); MD SCAN; MONOCYTES % (AUTO) 9 % (2-9); NEUTROPHILS # (AUTO) 14.07 x10^3/uL (1.8-6.8); NEUTROPHILS % (AUTO) 80 % (42-75)
[2019-04-22] MEDS ORDERED: VANCOMYCIN PER PHARMACY MC PRN (07:00)
[2019-04-22] MEDS ORDERED: PHARMACOKINETIC MONITORING MC PRN (07:00)
[2019-04-22] MEDS ORDERED: PHARMACOKINETIC CONSULTATION MC ONE (07:00)
[2019-04-22] MEDS: PIPERACILLIN/TAZO/PMX 3.375GM 50 ML IV SCH ×3 (07:33→18:35)
[2019-04-22] MEDS: VANCOMYCIN 1,300 MG in SODIUM CHLORIDE 0.9% 250 ML IV SCH (07:34)
[2019-04-22] MEDS: FAMOTIDINE 20 MG/2 ML IVPush SCH ×2 (08:01→20:50)
[2019-04-22] MEDS: SENNA/DOCUSATE TABLET PO SCH (08:01)
[2019-04-22] MEDS: SODIUM CHLORIDE FLUSH 10ML SYR IVF SCH ×2 (08:02→20:50)
[2019-04-22] MEDS: morphine SULFATE 10 MG/ML, 1ML IVPush PRN ×2 (10:27→18:16)
[2019-04-22 10:36] LABS: MICROSCOPIC INDICATED
[2019-04-22 10:45] LABS: CULTURE INDICATED? YES
[2019-04-23] MEDS: PIPERACILLIN/TAZO/PMX 3.375GM 50 ML IV SCH ×4 (01:18→19:58)
[2019-04-23] MEDS: VANCOMYCIN 1,300 MG in SODIUM CHLORIDE 0.9% 250 ML IV SCH ×2 (02:38→20:32)
[2019-04-23] MEDS: morphine SULFATE 10 MG/ML, 1ML IVPush PRN (03:24)
[2019-04-23 04:22] LABS: MEAN CORPUSCULAR HEMOGLOBIN 33.4 pg (27.5-34.5); MEAN CORPUSCULAR HGB CONC 33.6 g/dL (33.2-36.2); MEAN CORPUSCULAR VOLUME 99.4 fL (81-97); MEAN PLATELET VOLUME 6.3 fL (7.4-10.4); PLATELET COUNT 642 x10^3/uL (130-400); RED BLOOD COUNT 4.04 x10^6/uL (4.38-5.82); RED CELL DISTRIBUTION WIDTH 12.1 % (9.4-14.8)
[2019-04-23 04:34] LABS: ANION GAP 7 mmol/L (5-15); CHLORIDE 103 mmol/L (98-107); CREATININE 0.96 mg/dL (0.7-1.3); TRIGLYCERIDES 163 mg/dL (50-200)
[2019-04-23 04:45] LABS: BASOPHILS # (AUTO) 0.01 x10^3/uL (0-0.1); BASOPHILS % (AUTO) 0 % (0-1); EOSINOPHILS # (AUTO) 0.64 x10^3/uL (0-0.4); EOSINOPHILS % (AUTO) 3 % (1-7); LYMPHOCYTES % (AUTO) 9 % (22-44); MD SCAN; MONOCYTES # (AUTO) 1.37 x10^3/uL (0.2-0.8); MONOCYTES % (AUTO) 7 % (2-9); NEUTROPHILS # (AUTO) 15.17 x10^3/uL (1.8-6.8); NEUTROPHILS % (AUTO) 80 % (42-75)
[2019-04-23] MEDS: FAMOTIDINE 20 MG/2 ML IVPush SCH ×2 (08:30→21:30)
[2019-04-23] MEDS: LACTULOSE 20 GM/30 ML UDC PO SCH ×2 (08:30→21:30)
[2019-04-23] MEDS: SODIUM CHLORIDE FLUSH 10ML SYR IVF SCH ×2 (08:30→21:30)
[2019-04-23] MEDS: SENNA/DOCUSATE TABLET PO SCH (08:31)
[2019-04-24] MEDS: PIPERACILLIN/TAZO/PMX 3.375GM 50 ML IV SCH ×4 (02:30→20:13)
[2019-04-24] MEDS: SENNA/DOCUSATE TABLET PO SCH (08:37)
[2019-04-24] MEDS: FAMOTIDINE 20 MG/2 ML IVPush SCH ×2 (08:37→21:04)
[2019-04-24] MEDS: SODIUM CHLORIDE FLUSH 10ML SYR IVF SCH ×2 (08:38→21:04)
[2019-04-24] MEDS: LACTULOSE 20 GM/30 ML UDC PO SCH ×2 (08:38→21:05)
[2019-04-24] MEDS: SCOPOLAMINE PATCH, 1.5MG PATCH.TD72 TD SCH (08:47)
[2019-04-24] MEDS: POLYETHYLENE GLYCOL 17 GM PACKET PO PRN (08:47)
[2019-04-24] MEDS: VANCOMYCIN 1,300 MG in SODIUM CHLORIDE 0.9% 250 ML IV SCH (15:10)
[2019-04-24] MEDS: hydrALAzine 20 MG/ML, 1ML IV PRN (17:51)
[2019-04-25] MEDS: PIPERACILLIN/TAZO/PMX 3.375GM 50 ML IV SCH ×4 (01:57→20:50)
[2019-04-25 04:29] LABS: ANION GAP 6 mmol/L (5-15); BASOPHILS # (AUTO) 0.09 x10^3/uL (0-0.1); BASOPHILS % (AUTO) 1 % (0-1); CALCIUM 9.1 mg/dL (8.5-10.1); CHLORIDE 104 mmol/L (98-107); EOSINOPHILS # (AUTO) 0.23 x10^3/uL (0-0.4); EOSINOPHILS % (AUTO) 2 % (1-7); LYMPHOCYTES # (AUTO) 1.31 x10^3/uL (1-3.4); LYMPHOCYTES % (AUTO) 10 % (22-44); MD NO; MEAN CORPUSCULAR HEMOGLOBIN 32.2 pg (27.5-34.5); MEAN CORPUSCULAR HGB CONC 32.9 g/dL (33.2-36.2); MEAN CORPUSCULAR VOLUME 97.8 fL (81-97); MEAN PLATELET VOLUME 6.4 fL (7.4-10.4); MONOCYTES # (AUTO) 0.89 x10^3/uL (0.2-0.8); MONOCYTES % (AUTO) 7 % (2-9); NEUTROPHILS # (AUTO) 10.28 x10^3/uL (1.8-6.8); NEUTROPHILS % (AUTO) 80 % (42-75); PLATELET COUNT 759 x10^3/uL (130-400); RED BLOOD COUNT 4.23 x10^6/uL (4.38-5.82)
[2019-04-25 04:30] LABS: CREATININE 0.84 mg/dL (0.7-1.3)
[2019-04-25] MEDS: VANCOMYCIN 1,300 MG in SODIUM CHLORIDE 0.9% 250 ML IV SCH (08:30)
[2019-04-25] MEDS ORDERED: VANCOMYCIN 1,300 MG in SODIUM CHLORIDE 0.9% 250 ML IV ONE (10:00)
[2019-04-25] MEDS: SENNA/DOCUSATE TABLET PO SCH (10:36)
[2019-04-25] MEDS: SODIUM CHLORIDE FLUSH 10ML SYR IVF SCH ×2 (10:36→20:51)
[2019-04-25] MEDS: LACTULOSE 20 GM/30 ML UDC PO SCH ×2 (10:36→20:50)
[2019-04-25] MEDS: FAMOTIDINE 20 MG/2 ML IVPush SCH ×2 (10:38→20:50)
[2019-04-25] MEDS ORDERED: VANCOMYCIN 1,400 MG in SODIUM CHLORIDE 0.9% 250 ML IV SCH (22:00)
[2019-04-26] MEDS: PIPERACILLIN/TAZO/PMX 3.375GM 50 ML IV SCH ×4 (01:51→21:50)
[2019-04-26 04:31] LABS: BASOPHILS # (AUTO) 0.07 x10^3/uL (0-0.1); BASOPHILS % (AUTO) 1 % (0-1); EOSINOPHILS % (AUTO) 3 % (1-7); LYMPHOCYTES # (AUTO) 1.61 x10^3/uL (1-3.4); LYMPHOCYTES % (AUTO) 13 % (22-44); MD NO; MEAN CORPUSCULAR HEMOGLOBIN 33.4 pg (27.5-34.5); MEAN CORPUSCULAR HGB CONC 33.7 g/dL (33.2-36.2); MEAN CORPUSCULAR VOLUME 99.2 fL (81-97); MEAN PLATELET VOLUME 6.4 fL (7.4-10.4); MONOCYTES # (AUTO) 0.88 x10^3/uL (0.2-0.8); MONOCYTES % (AUTO) 7 % (2-9); NEUTROPHILS # (AUTO) 9.19 x10^3/uL (1.8-6.8); NEUTROPHILS % (AUTO) 76 % (42-75); PLATELET COUNT 803 x10^3/uL (130-400); RED BLOOD COUNT 4.08 x10^6/uL (4.38-5.82); RED CELL DISTRIBUTION WIDTH 12.2 % (9.4-14.8)
[2019-04-26 04:41] LABS: ANION GAP 5 mmol/L (5-15); CALCIUM 9.2 mg/dL (8.5-10.1); CHLORIDE 104 mmol/L (98-107); CREATININE 0.91 mg/dL (0.7-1.3)
[2019-04-26 08:55] VITALS: BP 139/93
[2019-04-26] MEDS: SENNA/DOCUSATE TABLET PO SCH (09:00)
[2019-04-26] MEDS: LACTULOSE 20 GM/30 ML UDC PO SCH ×2 (09:01→21:00)
[2019-04-26] MEDS: FAMOTIDINE 20 MG/2 ML IVPush SCH ×2 (10:18→21:49)
[2019-04-26] MEDS: SODIUM CHLORIDE FLUSH 10ML SYR IVF SCH ×2 (10:19→21:50)
[2019-04-26 12:13] VITALS: BP 132/89
[2019-04-26] MEDS ORDERED: MORPHINE SULFATE 4 MG/ML, 1ML IVPush PRN (13:00)
[2019-04-26] MEDS ORDERED: METOPROLOL 1 MG/ML, 5ML IV PRN (13:00)
[2019-04-26] MEDS: LABETALOL 5MG/ML, 20ML IVPush PRN (14:12)
[2019-04-26] MEDS: D5%-0.45% NACL 1,000 ML IV SCH (17:17)
[2019-04-26 19:00] VITALS: BP 127/88
[2019-04-27 00:34] VITALS: BP 127/89
[2019-04-27] MEDS: PIPERACILLIN/TAZO/PMX 3.375GM 50 ML IV SCH ×4 (04:08→22:53)
[2019-04-27 04:56] LABS: BASOPHILS # (AUTO) 0.02 x10^3/uL (0-0.1); BASOPHILS % (AUTO) 0 % (0-1); EOSINOPHILS # (AUTO) 0.21 x10^3/uL (0-0.4); EOSINOPHILS % (AUTO) 2 % (1-7); LYMPHOCYTES # (AUTO) 1.57 x10^3/uL (1-3.4); LYMPHOCYTES % (AUTO) 12 % (22-44); MD NO; MEAN CORPUSCULAR HEMOGLOBIN 33.2 pg (27.5-34.5); MEAN CORPUSCULAR HGB CONC 33.3 g/dL (33.2-36.2); MEAN CORPUSCULAR VOLUME 99.7 fL (81-97); MEAN PLATELET VOLUME 6.3 fL (7.4-10.4); MONOCYTES # (AUTO) 0.74 x10^3/uL (0.2-0.8); MONOCYTES % (AUTO) 5 % (2-9); NEUTROPHILS # (AUTO) 11.01 x10^3/uL (1.8-6.8); NEUTROPHILS % (AUTO) 81 % (42-75); PLATELET COUNT 734 x10^3/uL (130-400); RED BLOOD COUNT 3.83 x10^6/uL (4.38-5.82); RED CELL DISTRIBUTION WIDTH 11.8 % (9.4-14.8)
[2019-04-27 05:03] LABS: ANION GAP 7 mmol/L (5-15); CALCIUM 8.5 mg/dL (8.5-10.1); CHLORIDE 102 mmol/L (98-107); CREATININE 0.84 mg/dL (0.7-1.3)
[2019-04-27] MEDS: D5%-0.45% NACL 1,000 ML IV SCH (06:09)
[2019-04-27] MEDS: SENNA/DOCUSATE TABLET PO SCH ×2 (07:21→09:52)
[2019-04-27] MEDS: LACTULOSE 20 GM/30 ML UDC PO SCH ×3 (07:21→20:06)
[2019-04-27 07:26] VITALS: BP 143/93
[2019-04-27] MEDS: FAMOTIDINE 20 MG/2 ML IVPush SCH ×2 (09:51→20:05)
[2019-04-27] MEDS: SODIUM CHLORIDE FLUSH 10ML SYR IVF SCH ×2 (09:52→20:06)
[2019-04-27] MEDS: SCOPOLAMINE PATCH, 1.5MG PATCH.TD72 TD SCH (10:07)
[2019-04-27 12:10] VITALS: BP 122/92
[2019-04-27 16:27] VITALS: BP 132/93
[2019-04-27 20:01] VITALS: BP 124/101
[2019-04-27 20:03] VITALS: BP 142/93
[2019-04-28 00:18] VITALS: BP 118/94
[2019-04-28 04:39] LABS: BASOPHILS # (AUTO) 0.03 x10^3/uL (0-0.1); BASOPHILS % (AUTO) 0 % (0-1); EOSINOPHILS # (AUTO) 0.34 x10^3/uL (0-0.4); EOSINOPHILS % (AUTO) 4 % (1-7); LYMPHOCYTES # (AUTO) 1.68 x10^3/uL (1-3.4); LYMPHOCYTES % (AUTO) 18 % (22-44); MD NO; MEAN CORPUSCULAR HEMOGLOBIN 33.4 pg (27.5-34.5); MEAN CORPUSCULAR HGB CONC 33.6 g/dL (33.2-36.2); MEAN CORPUSCULAR VOLUME 99.2 fL (81-97); MEAN PLATELET VOLUME 6.2 fL (7.4-10.4); MONOCYTES # (AUTO) 0.68 x10^3/uL (0.2-0.8); MONOCYTES % (AUTO) 7 % (2-9); NEUTROPHILS # (AUTO) 6.76 x10^3/uL (1.8-6.8); NEUTROPHILS % (AUTO) 71 % (42-75); PLATELET COUNT 720 x10^3/uL (130-400); RED BLOOD COUNT 3.86 x10^6/uL (4.38-5.82)
[2019-04-28 04:48] LABS: ANION GAP 8 mmol/L (5-15); CALCIUM 8.7 mg/dL (8.5-10.1); CHLORIDE 104 mmol/L (98-107); CREATININE 0.81 mg/dL (0.7-1.3)
[2019-04-28] MEDS: PIPERACILLIN/TAZO/PMX 3.375GM 50 ML IV SCH (05:06)
[2019-04-28 06:55] VITALS: BP 132/87
[2019-04-28] MEDS: FAMOTIDINE 20 MG/2 ML IVPush SCH ×2 (09:00→20:09)
[2019-04-28] MEDS: SENNA/DOCUSATE TABLET PO SCH (09:00)
[2019-04-28] MEDS: LACTULOSE 20 GM/30 ML UDC PO SCH ×2 (09:00→20:26)
[2019-04-28] MEDS: SODIUM CHLORIDE FLUSH 10ML SYR IVF SCH ×2 (10:10→20:08)
[2019-04-28 14:36] VITALS: BP 121/82
[2019-04-28 19:07] VITALS: BP 143/89
[2019-04-28] MEDS: LORazepam 2 MG/ML, 1ML IVPush PRN (21:57)
[2019-04-28 23:27] VITALS: BP 140/101
[2019-04-29 00:43] VITALS: BP 138/92
[2019-04-29 05:17] LABS: BASOPHILS # (AUTO) 0.09 x10^3/uL (0-0.1); BASOPHILS % (AUTO) 1 % (0-1); EOSINOPHILS # (AUTO) 0.33 x10^3/uL (0-0.4); EOSINOPHILS % (AUTO) 4 % (1-7); LYMPHOCYTES # (AUTO) 1.87 x10^3/uL (1-3.4); LYMPHOCYTES % (AUTO) 22 % (22-44); MD NO; MEAN CORPUSCULAR HEMOGLOBIN 33.2 pg (27.5-34.5); MEAN CORPUSCULAR HGB CONC 33.4 g/dL (33.2-36.2); MEAN CORPUSCULAR VOLUME 99.6 fL (81-97); MEAN PLATELET VOLUME 6.3 fL (7.4-10.4); MONOCYTES # (AUTO) 0.82 x10^3/uL (0.2-0.8); MONOCYTES % (AUTO) 9 % (2-9); NEUTROPHILS % (AUTO) 64 % (42-75); PLATELET COUNT 774 x10^3/uL (130-400); RED BLOOD COUNT 4.13 x10^6/uL (4.38-5.82); RED CELL DISTRIBUTION WIDTH 12.4 % (9.4-14.8)
[2019-04-29 05:29] LABS: ANION GAP 7 mmol/L (5-15); CALCIUM 9.1 mg/dL (8.5-10.1); CHLORIDE 103 mmol/L (98-107)
[2019-04-29 05:30] LABS: CREATININE 0.78 mg/dL (0.7-1.3)
[2019-04-29 05:49] VITALS: BP 134/83
[2019-04-29 06:57] VITALS: BP 121/91
[2019-04-29] MEDS: SENNA/DOCUSATE TABLET PO SCH (09:00)
[2019-04-29] MEDS: LACTULOSE 20 GM/30 ML UDC PO SCH ×2 (09:00→21:00)
[2019-04-29] MEDS: SODIUM CHLORIDE FLUSH 10ML SYR IVF SCH (09:40)
[2019-04-29] MEDS: FAMOTIDINE 20 MG/2 ML IVPush SCH ×2 (09:40→20:34)
[2019-04-29 13:32] VITALS: BP 122/83
[2019-04-29 18:36] VITALS: BP 143/98
[2019-04-29] MEDS: LORazepam 2 MG/ML, 1ML IVPush PRN (20:34)
[2019-04-30 00:12] VITALS: BP 133/97
[2019-04-30] MEDS: SODIUM CHLORIDE FLUSH 10ML SYR IVF SCH ×3 (00:16→21:26)
[2019-04-30 05:59] VITALS: BP 131/92
[2019-04-30 07:32] VITALS: BP 135/92
[2019-04-30] MEDS: LACTULOSE 20 GM/30 ML UDC PO SCH ×2 (09:00→21:00)
[2019-04-30] MEDS: SENNA/DOCUSATE TABLET PO SCH (09:00)
[2019-04-30] MEDS: FAMOTIDINE 20 MG/2 ML IVPush SCH ×2 (09:05→21:26)
[2019-04-30 15:15] VITALS: BP 128/87
[2019-04-30 19:23] VITALS: BP 148/103
[2019-04-30 21:44] VITALS: BP 141/95
[2019-05-01 02:00] VITALS: BP 131/96
[2019-05-01 04:45] LABS: BASOPHILS # (AUTO) 0.06 x10^3/uL (0-0.1); BASOPHILS % (AUTO) 1 % (0-1); EOSINOPHILS # (AUTO) 0.37 x10^3/uL (0-0.4); EOSINOPHILS % (AUTO) 4 % (1-7); LYMPHOCYTES # (AUTO) 2.01 x10^3/uL (1-3.4); LYMPHOCYTES % (AUTO) 22 % (22-44); MD NO; MEAN CORPUSCULAR HEMOGLOBIN 32.6 pg (27.5-34.5); MEAN CORPUSCULAR HGB CONC 33.5 g/dL (33.2-36.2); MEAN CORPUSCULAR VOLUME 97.2 fL (81-97); MEAN PLATELET VOLUME 6.3 fL (7.4-10.4); MONOCYTES # (AUTO) 0.76 x10^3/uL (0.2-0.8); MONOCYTES % (AUTO) 8 % (2-9); NEUTROPHILS # (AUTO) 6.02 x10^3/uL (1.8-6.8); NEUTROPHILS % (AUTO) 65 % (42-75); PLATELET COUNT 735 x10^3/uL (130-400); RED BLOOD COUNT 4.46 x10^6/uL (4.38-5.82); RED CELL DISTRIBUTION WIDTH 12.2 % (9.4-14.8)
[2019-05-01 04:59] LABS: ANION GAP 5 mmol/L (5-15); CALCIUM 9.6 mg/dL (8.5-10.1); CHLORIDE 103 mmol/L (98-107)
[2019-05-01 05:00] LABS: CREATININE 0.83 mg/dL (0.7-1.3)
[2019-05-01 07:31] VITALS: BP 132/89
[2019-05-01] MEDS: LACTULOSE 20 GM/30 ML UDC PO SCH ×2 (09:00→19:26)
[2019-05-01] MEDS: SODIUM CHLORIDE FLUSH 10ML SYR IVF SCH ×2 (09:40→20:53)
[2019-05-01] MEDS: SENNA/DOCUSATE TABLET PO SCH (09:40)
[2019-05-01] MEDS: FAMOTIDINE 20 MG/2 ML IVPush SCH ×2 (09:40→20:53)
[2019-05-01 12:08] VITALS: BP 136/92
[2019-05-01 13:12] VITALS: BP 122/83
[2019-05-01 16:44] VITALS: BP 139/95
[2019-05-01 19:52] VITALS: BP 157/75
[2019-05-01] MEDS: LORazepam 2 MG/ML, 1ML IVPush PRN (20:53)
[2019-05-02 02:04] VITALS: BP 134/95
[2019-05-02 06:55] VITALS: BP 131/102
[2019-05-02] MEDS: LACTULOSE 20 GM/30 ML UDC PO SCH ×2 (09:00→21:00)
[2019-05-02] MEDS: SENNA/DOCUSATE TABLET PO SCH (09:00)
[2019-05-02] MEDS: SODIUM CHLORIDE FLUSH 10ML SYR IVF SCH ×2 (11:32→21:00)
[2019-05-02] MEDS: FAMOTIDINE 20 MG/2 ML IVPush SCH ×2 (11:32→21:00)
[2019-05-02] MEDS: hydrALAzine 20 MG/ML, 1ML IV PRN ×3 (11:33→16:08)
[2019-05-02 11:40] VITALS: BP 129/98
[2019-05-02 13:40] VITALS: BP 122/91
[2019-05-02 19:00] VITALS: BP 124/61
[2019-05-02 19:55] VITALS: BP 130/93
[2019-05-03 01:30] VITALS: BP 125/89
[2019-05-03] MEDS: LORazepam 2 MG/ML, 1ML IVPush PRN (01:30)
[2019-05-03 08:58] VITALS: BP 125/82
[2019-05-03] MEDS: FAMOTIDINE 20 MG/2 ML IVPush SCH ×2 (09:18→20:33)
[2019-05-03] MEDS: LACTULOSE 20 GM/30 ML UDC PO SCH ×2 (09:18→20:33)
[2019-05-03] MEDS: SENNA/DOCUSATE TABLET PO SCH (09:19)
[2019-05-03] MEDS: SODIUM CHLORIDE FLUSH 10ML SYR IVF SCH ×2 (09:20→20:33)
[2019-05-03 09:24] LABS: BASOPHILS # (AUTO) 0.04 x10^3/uL (0-0.1); BASOPHILS % (AUTO) 0 % (0-1); EOSINOPHILS # (AUTO) 0.42 x10^3/uL (0-0.4); EOSINOPHILS % (AUTO) 5 % (1-7); LYMPHOCYTES # (AUTO) 1.93 x10^3/uL (1-3.4); LYMPHOCYTES % (AUTO) 21 % (22-44); MD NO; MEAN CORPUSCULAR HEMOGLOBIN 33.2 pg (27.5-34.5); MEAN CORPUSCULAR HGB CONC 34.1 g/dL (33.2-36.2); MEAN CORPUSCULAR VOLUME 97.4 fL (81-97); MONOCYTES # (AUTO) 0.77 x10^3/uL (0.2-0.8); MONOCYTES % (AUTO) 8 % (2-9); NEUTROPHILS # (AUTO) 6.21 x10^3/uL (1.8-6.8); NEUTROPHILS % (AUTO) 66 % (42-75); PLATELET COUNT 629 x10^3/uL (130-400); RED BLOOD COUNT 4.48 x10^6/uL (4.38-5.82); RED CELL DISTRIBUTION WIDTH 12.3 % (9.4-14.8)
[2019-05-03 09:26] LABS: ANION GAP 6 mmol/L (5-15); CALCIUM 9.2 mg/dL (8.5-10.1); CHLORIDE 105 mmol/L (98-107)
[2019-05-03 13:19] VITALS: BP 130/89
[2019-05-03 20:21] VITALS: BP 143/94
[2019-05-04 00:27] VITALS: BP 155/98
[2019-05-04 01:58] VITALS: BP 154/94
[2019-05-04 06:22] VITALS: BP 143/91
[2019-05-04 06:50] VITALS: BP 141/97
[2019-05-04] MEDS: LACTULOSE 20 GM/30 ML UDC PO SCH ×2 (08:21→20:28)
[2019-05-04] MEDS: SENNA/DOCUSATE TABLET PO SCH (08:22)
[2019-05-04] MEDS: FAMOTIDINE 20 MG/2 ML IVPush SCH ×2 (08:29→20:28)
[2019-05-04] MEDS: SODIUM CHLORIDE FLUSH 10ML SYR IVF SCH ×2 (08:29→20:28)
[2019-05-04 13:35] VITALS: BP 134/89
[2019-05-04 20:05] VITALS: BP 150/79
[2019-05-05 00:50] VITALS: BP 141/98
[2019-05-05 05:54] LABS: BASOPHILS # (AUTO) 0.06 x10^3/uL (0-0.1); BASOPHILS % (AUTO) 1 % (0-1); EOSINOPHILS # (AUTO) 0.58 x10^3/uL (0-0.4); EOSINOPHILS % (AUTO) 7 % (1-7); LYMPHOCYTES # (AUTO) 1.35 x10^3/uL (1-3.4); LYMPHOCYTES % (AUTO) 17 % (22-44); MD NO; MEAN CORPUSCULAR HEMOGLOBIN 32.7 pg (27.5-34.5); MEAN CORPUSCULAR HGB CONC 33.4 g/dL (33.2-36.2); MEAN CORPUSCULAR VOLUME 98.1 fL (81-97); MEAN PLATELET VOLUME 6.3 fL (7.4-10.4); MONOCYTES # (AUTO) 0.77 x10^3/uL (0.2-0.8); MONOCYTES % (AUTO) 10 % (2-9); NEUTROPHILS # (AUTO) 5.22 x10^3/uL (1.8-6.8); NEUTROPHILS % (AUTO) 65 % (42-75); PLATELET COUNT 526 x10^3/uL (130-400); RED BLOOD COUNT 4.39 x10^6/uL (4.38-5.82); RED CELL DISTRIBUTION WIDTH 12.7 % (9.4-14.8)
[2019-05-05 06:03] LABS: ANION GAP 5 mmol/L (5-15); CALCIUM 9.4 mg/dL (8.5-10.1); CHLORIDE 105 mmol/L (98-107); CREATININE 0.86 mg/dL (0.7-1.3)
[2019-05-05 06:04] VITALS: BP 133/88
[2019-05-05 07:32] VITALS: BP 144/95
[2019-05-05] MEDS: SODIUM CHLORIDE FLUSH 10ML SYR IVF SCH ×2 (08:57→22:41)
[2019-05-05] MEDS: FAMOTIDINE 20 MG/2 ML IVPush SCH ×2 (08:57→22:41)
[2019-05-05] MEDS: LACTULOSE 20 GM/30 ML UDC PO SCH ×2 (08:58→21:00)
[2019-05-05] MEDS: SENNA/DOCUSATE TABLET PO SCH (08:58)
[2019-05-05 13:15] VITALS: BP 141/92
[2019-05-05 19:22] VITALS: BP 138/92
[2019-05-06 02:19] VITALS: BP 142/89
[2019-05-06 06:58] VITALS: BP 154/98
[2019-05-06] MEDS: LACTULOSE 20 GM/30 ML UDC PO SCH ×2 (09:00→20:32)
[2019-05-06] MEDS: SENNA/DOCUSATE TABLET PO SCH (09:00)
[2019-05-06] MEDS: FAMOTIDINE 20 MG/2 ML IVPush SCH ×2 (09:24→20:21)
[2019-05-06] MEDS: SODIUM CHLORIDE FLUSH 10ML SYR IVF SCH ×2 (09:29→20:22)
[2019-05-06 13:55] VITALS: BP 132/91
[2019-05-06 19:34] VITALS: BP 133/90
[2019-05-07 01:23] VITALS: BP 128/88
[2019-05-07 05:30] LABS: BASOPHILS # (AUTO) 0.07 x10^3/uL (0-0.1); BASOPHILS % (AUTO) 1 % (0-1); EOSINOPHILS # (AUTO) 0.64 x10^3/uL (0-0.4); EOSINOPHILS % (AUTO) 8 % (1-7); LYMPHOCYTES # (AUTO) 1.49 x10^3/uL (1-3.4); LYMPHOCYTES % (AUTO) 18 % (22-44); MD NO; MEAN CORPUSCULAR HEMOGLOBIN 33.1 pg (27.5-34.5); MEAN CORPUSCULAR HGB CONC 33.4 g/dL (33.2-36.2); MEAN CORPUSCULAR VOLUME 99.2 fL (81-97); MEAN PLATELET VOLUME 6.8 fL (7.4-10.4); MONOCYTES # (AUTO) 0.92 x10^3/uL (0.2-0.8); MONOCYTES % (AUTO) 11 % (2-9); NEUTROPHILS # (AUTO) 5.28 x10^3/uL (1.8-6.8); NEUTROPHILS % (AUTO) 63 % (42-75); PLATELET COUNT 454 x10^3/uL (130-400); RED BLOOD COUNT 4.46 x10^6/uL (4.38-5.82); RED CELL DISTRIBUTION WIDTH 12.5 % (9.4-14.8)
[2019-05-07 05:45] LABS: CHLORIDE 105 mmol/L (98-107)
[2019-05-07 05:56] LABS: ANION GAP 8 mmol/L (5-15); CALCIUM 9.3 mg/dL (8.5-10.1); CREATININE 0.82 mg/dL (0.7-1.3)
[2019-05-07 07:32] VITALS: BP 133/89
[2019-05-07] MEDS: SENNA/DOCUSATE TABLET PO SCH (09:00)
[2019-05-07] MEDS: LACTULOSE 20 GM/30 ML UDC PO SCH ×2 (09:00→20:56)
[2019-05-07] MEDS: SODIUM CHLORIDE FLUSH 10ML SYR IVF SCH ×2 (09:00→20:57)
[2019-05-07] MEDS: FAMOTIDINE 20 MG/2 ML IVPush SCH ×2 (10:11→20:57)
[2019-05-07 12:19] VITALS: BP 151/99
[2019-05-07 17:25] VITALS: BP 142/94
[2019-05-07 19:52] VITALS: BP 142/90
[2019-05-07 23:50] VITALS: BP 125/87
[2019-05-08 05:28] VITALS: BP 143/93
[2019-05-08 08:45] VITALS: BP 143/97
[2019-05-08] MEDS: SENNA/DOCUSATE TABLET PO SCH (08:45)
[2019-05-08] MEDS: LACTULOSE 20 GM/30 ML UDC PO SCH ×2 (08:45→21:28)
[2019-05-08] MEDS: SODIUM CHLORIDE FLUSH 10ML SYR IVF SCH ×2 (09:00→21:28)
[2019-05-08] MEDS: FAMOTIDINE 20 MG/2 ML IVPush SCH ×2 (09:35→21:27)
[2019-05-08 14:00] VITALS: BP 146/99
[2019-05-08 21:09] VITALS: BP 144/88
[2019-05-09 01:43] VITALS: BP 138/91
[2019-05-09] MEDS: SENNA/DOCUSATE TABLET PO SCH (08:21)
[2019-05-09] MEDS: LACTULOSE 20 GM/30 ML UDC PO SCH ×2 (08:21→21:38)
[2019-05-09] MEDS: SODIUM CHLORIDE FLUSH 10ML SYR IVF SCH ×2 (08:21→21:38)
[2019-05-09] MEDS: FAMOTIDINE 20 MG/2 ML IVPush SCH ×2 (08:21→21:38)
[2019-05-09 08:49] VITALS: BP 136/93
[2019-05-09 14:16] VITALS: BP 129/89
[2019-05-09 20:17] VITALS: BP 143/93
[2019-05-10 02:00] VITALS: BP 144/97
[2019-05-10] MEDS: SENNA/DOCUSATE TABLET PO SCH (07:01)
[2019-05-10] MEDS: LACTULOSE 20 GM/30 ML UDC PO SCH ×2 (07:01→21:00)
[2019-05-10 07:35] VITALS: BP 151/95
[2019-05-10] MEDS: SODIUM CHLORIDE FLUSH 10ML SYR IVF SCH ×2 (08:17→21:54)
[2019-05-10] MEDS: FAMOTIDINE 20 MG/2 ML IVPush SCH ×2 (08:17→21:54)
[2019-05-10 14:25] VITALS: BP 144/80
[2019-05-10 19:40] VITALS: BP 145/96
[2019-05-10 21:49] VITALS: BP 145/98
[2019-05-11 01:36] VITALS: BP 134/99
[2019-05-11 05:41] VITALS: BP 129/93
[2019-05-11] MEDS: LACTULOSE 20 GM/30 ML UDC PO SCH ×2 (10:32→20:41)
[2019-05-11] MEDS: SODIUM CHLORIDE FLUSH 10ML SYR IVF SCH ×2 (10:32→20:41)
[2019-05-11] MEDS: FAMOTIDINE 20 MG/2 ML IVPush SCH ×2 (10:32→20:41)
[2019-05-11] MEDS: SENNA/DOCUSATE TABLET PO SCH (10:33)
[2019-05-11 12:35] VITALS: BP 152/107
[2019-05-11 18:47] VITALS: BP 151/97
[2019-05-11 22:10] VITALS: BP 143/100
[2019-05-12 01:15] VITALS: BP 138/93
[2019-05-12 05:45] VITALS: BP 142/105
[2019-05-12] MEDS: FAMOTIDINE 20 MG/2 ML IVPush SCH ×2 (07:53→20:46)
[2019-05-12] MEDS: SODIUM CHLORIDE FLUSH 10ML SYR IVF SCH ×2 (07:54→20:47)
[2019-05-12] MEDS: SENNA/DOCUSATE TABLET PO SCH (07:54)
[2019-05-12] MEDS: LACTULOSE 20 GM/30 ML UDC PO SCH ×2 (07:54→20:47)
[2019-05-12 08:08] VITALS: BP 135/100
[2019-05-12 14:31] VITALS: BP 147/101
[2019-05-12 20:43] VITALS: BP 140/102
[2019-05-13 06:34] LABS: ALANINE AMINOTRANSFERASE 53 U/L (12-78); ALBUMIN 3.2 g/dL (3.4-5.0); ANION GAP 8 mmol/L (5-15); CALCIUM 9.1 mg/dL (8.5-10.1); CHLORIDE 102 mmol/L (98-107); CREATININE 0.77 mg/dL (0.7-1.3)
[2019-05-13 06:37] LABS: ALKALINE PHOSPHATASE 99 U/L (45-117); BILIRUBIN,TOTAL 0.4 mg/dL (0.2-1.0); TOTAL PROTEIN 7.8 g/dL (6.4-8.2)
[2019-05-13 06:56] LABS: BASOPHILS # (AUTO) 0.06 x10^3/uL (0-0.1); BASOPHILS % (AUTO) 1 % (0-1); EOSINOPHILS # (AUTO) 0.55 x10^3/uL (0-0.4); EOSINOPHILS % (AUTO) 9 % (1-7); LYMPHOCYTES # (AUTO) 1.53 x10^3/uL (1-3.4); LYMPHOCYTES % (AUTO) 24 % (22-44); MD NO; MEAN CORPUSCULAR HEMOGLOBIN 32.8 pg (27.5-34.5); MEAN CORPUSCULAR HGB CONC 33.7 g/dL (33.2-36.2); MEAN CORPUSCULAR VOLUME 97.3 fL (81-97); MEAN PLATELET VOLUME 6.8 fL (7.4-10.4); MONOCYTES % (AUTO) 11 % (2-9); NEUTROPHILS # (AUTO) 3.49 x10^3/uL (1.8-6.8); NEUTROPHILS % (AUTO) 55 % (42-75); PLATELET COUNT 320 x10^3/uL (130-400); RED CELL DISTRIBUTION WIDTH 12.8 % (9.4-14.8)
[2019-05-13 07:31] VITALS: BP 151/107
[2019-05-13] MEDS: LACTULOSE 20 GM/30 ML UDC PO SCH ×2 (08:20→21:18)
[2019-05-13] MEDS: SODIUM CHLORIDE FLUSH 10ML SYR IVF SCH ×2 (08:20→21:18)
[2019-05-13] MEDS: SENNA/DOCUSATE TABLET PO SCH (08:20)
[2019-05-13] MEDS: FAMOTIDINE 20 MG/2 ML IVPush SCH ×2 (08:20→21:18)
[2019-05-13 13:52] VITALS: BP 138/102
[2019-05-13] MEDS: POLYETHYLENE GLYCOL 17 GM PACKET PO PRN (14:15)
[2019-05-13 19:45] VITALS: BP 137/89
[2019-05-13 21:12] VITALS: BP 143/96
[2019-05-14 03:23] VITALS: BP 129/93
[2019-05-14 06:14] VITALS: BP 137/104
[2019-05-14 07:18] VITALS: BP 136/100
[2019-05-14] MEDS: SODIUM CHLORIDE FLUSH 10ML SYR IVF SCH ×2 (09:00→20:01)
[2019-05-14] MEDS: LACTULOSE 20 GM/30 ML UDC PO SCH ×2 (09:40→20:01)
[2019-05-14] MEDS: FAMOTIDINE 20 MG/2 ML IVPush SCH ×2 (09:41→20:01)
[2019-05-14] MEDS: SENNA/DOCUSATE TABLET PO SCH (09:41)
[2019-05-14 12:52] VITALS: BP 139/99
[2019-05-14] MEDS: TAMSULOSIN 0.4 MG CAP.ER.24H PO SCH (17:00)
[2019-05-14] MEDS: ACETAMINOPHEN 650 MG/20.3 ML UDC PO PRN (20:01)
[2019-05-14 20:30] VITALS: BP 142/94
[2019-05-15 02:15] VITALS: BP 127/93
[2019-05-15 06:00] VITALS: BP 132/97
[2019-05-15] MEDS: SENNA/DOCUSATE TABLET PO SCH (09:00)
[2019-05-15] MEDS: LACTULOSE 20 GM/30 ML UDC PO SCH ×2 (09:00→20:28)
[2019-05-15] MEDS: SODIUM CHLORIDE FLUSH 10ML SYR IVF SCH ×2 (09:31→20:33)
[2019-05-15] MEDS: TAMSULOSIN 0.4 MG CAP.ER.24H PO SCH (09:31)
[2019-05-15] MEDS: FAMOTIDINE 20 MG/2 ML IVPush SCH ×2 (09:31→20:28)
[2019-05-15] MEDS: OXYcodone IR 5MG TABLET PO PRN (12:00)
[2019-05-15 12:45] VITALS: BP 128/88
[2019-05-15 19:00] VITALS: BP 133/92
[2019-05-16 01:35] VITALS: BP 153/94
[2019-05-16] MEDS: FAMOTIDINE 20 MG/2 ML IVPush SCH ×3 (08:06→21:00)
[2019-05-16] MEDS: LACTULOSE 20 GM/30 ML UDC PO SCH ×2 (08:06→20:26)
[2019-05-16] MEDS: TAMSULOSIN 0.4 MG CAP.ER.24H PO SCH (08:06)
[2019-05-16] MEDS: SENNA/DOCUSATE TABLET PO SCH (08:07)
[2019-05-16] MEDS: SODIUM CHLORIDE FLUSH 10ML SYR IVF SCH ×3 (08:07→21:00)
[2019-05-16 11:33] VITALS: BP 133/100
[2019-05-16 13:13] VITALS: BP 129/89
[2019-05-16 16:28] VITALS: BP 150/97
[2019-05-16 19:36] VITALS: BP 144/97
[2019-05-16] MEDS: LORazepam 2 MG/ML, 1ML IVPush PRN (20:25)
[2019-05-17 01:23] VITALS: BP 136/92
[2019-05-17] MEDS: TAMSULOSIN 0.4 MG CAP.ER.24H PO SCH (07:37)
[2019-05-17 08:38] VITALS: BP 145/101
[2019-05-17 08:49] VITALS: BP 141/94
[2019-05-17] MEDS: SODIUM CHLORIDE FLUSH 10ML SYR IVF SCH ×2 (10:20→21:00)
[2019-05-17] MEDS: FAMOTIDINE 20 MG/2 ML IVPush SCH ×2 (10:20→21:54)
[2019-05-17] MEDS: SENNA/DOCUSATE TABLET PO SCH (10:21)
[2019-05-17] MEDS: LACTULOSE 20 GM/30 ML UDC PO SCH ×2 (10:21→21:54)
[2019-05-17 12:15] VITALS: BP 149/105
[2019-05-17 18:33] VITALS: BP 132/98
[2019-05-17] MEDS: METOPROLOL TARTRATE 25 MG TAB PO SCH (18:35)
[2019-05-18 03:57] VITALS: BP 135/87
[2019-05-18] MEDS: METOPROLOL TARTRATE 25 MG TAB PO SCH ×2 (05:17→17:40)
[2019-05-18] MEDS: LACTULOSE 20 GM/30 ML UDC PO SCH ×2 (09:00→21:10)
[2019-05-18] MEDS: SENNA/DOCUSATE TABLET PO SCH (09:00)
[2019-05-18] MEDS: FAMOTIDINE 20 MG/2 ML IVPush SCH ×2 (09:13→21:10)
[2019-05-18] MEDS: SODIUM CHLORIDE FLUSH 10ML SYR IVF SCH ×2 (09:14→21:11)
[2019-05-18 09:59] VITALS: BP 136/93
--- NOTE | 2019-05-18 13:07 | NUR ---
REC: chopped diet with thin liquids; orange sheet posted Addendum: 05/18/19 at 1307 by Zohreh SANTAMARIA Amended: Links added.
[2019-05-18 14:06] VITALS: BP 131/92
[2019-05-18 20:59] VITALS: BP 128/79
[2019-05-19 03:59] VITALS: BP 131/88
[2019-05-19] MEDS: METOPROLOL TARTRATE 25 MG TAB PO SCH ×2 (05:38→18:32)
[2019-05-19 07:24] VITALS: BP 126/85
[2019-05-19] MEDS: LACTULOSE 20 GM/30 ML UDC PO SCH ×2 (09:00→20:08)
[2019-05-19] MEDS: SENNA/DOCUSATE TABLET PO SCH (09:00)
[2019-05-19] MEDS: SODIUM CHLORIDE FLUSH 10ML SYR IVF SCH ×2 (09:32→20:08)
[2019-05-19] MEDS: FAMOTIDINE 20 MG/2 ML IVPush SCH ×2 (09:32→20:08)
[2019-05-19 12:47] VITALS: BP 125/89
[2019-05-19 19:50] VITALS: BP 129/86
[2019-05-20 01:51] VITALS: BP 144/88
[2019-05-20] MEDS: METOPROLOL TARTRATE 25 MG TAB PO SCH ×2 (05:14→17:42)
[2019-05-20 06:42] VITALS: BP 142/80
[2019-05-20] MEDS: LACTULOSE 20 GM/30 ML UDC PO SCH ×2 (09:17→22:20)
[2019-05-20] MEDS: SENNA/DOCUSATE TABLET PO SCH (09:17)
[2019-05-20] MEDS: FAMOTIDINE 20 MG/2 ML IVPush SCH ×2 (09:19→22:19)
[2019-05-20] MEDS: SODIUM CHLORIDE FLUSH 10ML SYR IVF SCH ×2 (09:20→22:20)
[2019-05-20 13:04] VITALS: BP 127/83
[2019-05-20 20:34] VITALS: BP 137/91
[2019-05-20 22:17] VITALS: BP 117/89
[2019-05-21 02:09] VITALS: BP 132/96
[2019-05-21 06:32] VITALS: BP 141/95
[2019-05-21] MEDS: METOPROLOL TARTRATE 25 MG TAB PO SCH ×2 (06:36→19:22)
[2019-05-21 07:30] VITALS: BP 130/95
[2019-05-21] MEDS: FAMOTIDINE 20 MG/2 ML IVPush SCH ×2 (10:00→22:11)
[2019-05-21] MEDS: SODIUM CHLORIDE FLUSH 10ML SYR IVF SCH ×2 (10:01→22:12)
[2019-05-21] MEDS: SENNA/DOCUSATE TABLET PO SCH (10:01)
[2019-05-21] MEDS: LACTULOSE 20 GM/30 ML UDC PO SCH ×2 (10:01→22:11)
[2019-05-21 12:30] VITALS: BP 137/95
[2019-05-21 19:47] VITALS: BP 134/100
[2019-05-22 01:36] VITALS: BP 143/103
[2019-05-22 06:31] VITALS: BP 138/97
[2019-05-22] MEDS: METOPROLOL TARTRATE 25 MG TAB PO SCH ×2 (06:40→17:16)
[2019-05-22 08:08] VITALS: BP 115/85
[2019-05-22] MEDS: SODIUM CHLORIDE FLUSH 10ML SYR IVF SCH ×2 (10:06→20:22)
[2019-05-22] MEDS: FAMOTIDINE 20 MG/2 ML IVPush SCH ×2 (10:06→20:22)
[2019-05-22] MEDS: LACTULOSE 20 GM/30 ML UDC PO SCH ×2 (10:06→20:22)
[2019-05-22] MEDS: SENNA/DOCUSATE TABLET PO SCH (10:07)
[2019-05-22 13:39] VITALS: BP 140/98
[2019-05-22 19:16] VITALS: BP 125/84
[2019-05-23 00:37] VITALS: BP 136/94
[2019-05-23] MEDS: METOPROLOL TARTRATE 25 MG TAB PO SCH ×2 (05:24→17:07)
[2019-05-23 05:25] VITALS: BP 124/92
[2019-05-23 07:02] VITALS: BP 136/97
[2019-05-23] MEDS: SODIUM CHLORIDE FLUSH 10ML SYR IVF SCH ×2 (09:00→19:55)
[2019-05-23] MEDS: SENNA/DOCUSATE TABLET PO SCH (09:19)
[2019-05-23] MEDS: LACTULOSE 20 GM/30 ML UDC PO SCH ×2 (09:19→19:55)
[2019-05-23] MEDS: FAMOTIDINE 20 MG/2 ML IVPush SCH (09:19)
[2019-05-23 13:28] VITALS: BP 132/96
[2019-05-23] MEDS: FAMOTIDINE 20 MG TABLET PO SCH (19:55)
[2019-05-23 20:22] VITALS: BP 126/85
[2019-05-24 02:20] VITALS: BP 147/93
[2019-05-24] MEDS: METOPROLOL TARTRATE 25 MG TAB PO SCH ×2 (06:08→17:45)
[2019-05-24 06:10] VITALS: BP 147/105
[2019-05-24 08:00] VITALS: BP 133/94
[2019-05-24] MEDS: SODIUM CHLORIDE FLUSH 10ML SYR IVF SCH ×2 (09:00→20:21)
[2019-05-24] MEDS: FAMOTIDINE 20 MG TABLET PO SCH ×2 (09:11→20:21)
[2019-05-24] MEDS: LACTULOSE 20 GM/30 ML UDC PO SCH ×2 (09:12→20:21)
[2019-05-24] MEDS: SENNA/DOCUSATE TABLET PO SCH (09:12)
[2019-05-24 15:56] VITALS: BP 131/87
[2019-05-24 19:33] VITALS: BP 134/74
[2019-05-25 03:38] VITALS: BP 115/77
[2019-05-25] MEDS: METOPROLOL TARTRATE 25 MG TAB PO SCH ×2 (05:45→17:18)
[2019-05-25 05:47] VITALS: BP 137/101
[2019-05-25 08:55] VITALS: BP 129/95
[2019-05-25] MEDS: SODIUM CHLORIDE FLUSH 10ML SYR IVF SCH ×2 (09:00→21:00)
[2019-05-25] MEDS: SENNA/DOCUSATE TABLET PO SCH (10:23)
[2019-05-25] MEDS: LACTULOSE 20 GM/30 ML UDC PO SCH ×2 (10:23→21:08)
[2019-05-25] MEDS: FAMOTIDINE 20 MG TABLET PO SCH ×2 (10:23→21:08)
[2019-05-25 14:32] VITALS: BP 129/93
[2019-05-25 19:34] VITALS: BP 137/87
[2019-05-26 04:22] VITALS: BP 130/84
[2019-05-26] MEDS: METOPROLOL TARTRATE 25 MG TAB PO SCH ×2 (05:43→17:32)
[2019-05-26 07:40] VITALS: BP 134/89
[2019-05-26] MEDS: SODIUM CHLORIDE FLUSH 10ML SYR IVF SCH ×2 (09:00→20:51)
[2019-05-26] MEDS: LACTULOSE 20 GM/30 ML UDC PO SCH ×2 (10:22→20:52)
[2019-05-26] MEDS: FAMOTIDINE 20 MG TABLET PO SCH ×2 (10:23→20:51)
[2019-05-26] MEDS: SENNA/DOCUSATE TABLET PO SCH (10:23)
[2019-05-26 14:40] VITALS: BP 132/83
[2019-05-26 19:10] VITALS: BP 128/85
[2019-05-27 01:19] VITALS: BP 125/86
[2019-05-27 05:44] VITALS: BP 146/105
[2019-05-27] MEDS: METOPROLOL TARTRATE 25 MG TAB PO SCH ×2 (06:06→17:23)
[2019-05-27 07:11] VITALS: BP 145/89
[2019-05-27] MEDS: LACTULOSE 20 GM/30 ML UDC PO SCH ×2 (09:49→23:03)
[2019-05-27] MEDS: FAMOTIDINE 20 MG TABLET PO SCH ×2 (09:50→23:02)
[2019-05-27] MEDS: SENNA/DOCUSATE TABLET PO SCH (09:50)
[2019-05-27] MEDS: SODIUM CHLORIDE FLUSH 10ML SYR IVF SCH ×2 (09:50→23:02)
[2019-05-27 12:31] VITALS: BP 117/82
[2019-05-27 19:12] VITALS: BP 123/89
[2019-05-28] VITALS (7 sets, daily range): BP systolic 106–133; BP diastolic 66–91
[2019-05-28] MEDS: METOPROLOL TARTRATE 25 MG TAB PO SCH ×2 (06:48→17:07)
[2019-05-28] MEDS: SODIUM CHLORIDE FLUSH 10ML SYR IVF SCH ×2 (09:00→21:16)
[2019-05-28] MEDS: FAMOTIDINE 20 MG TABLET PO SCH ×2 (10:39→21:16)
[2019-05-28] MEDS: SENNA/DOCUSATE TABLET PO SCH (10:39)
[2019-05-28] MEDS: LACTULOSE 20 GM/30 ML UDC PO SCH ×2 (10:39→21:17)
[2019-05-29 01:15] VITALS: BP 119/82
[2019-05-29 05:48] VITALS: BP 140/98
[2019-05-29] MEDS: METOPROLOL TARTRATE 25 MG TAB PO SCH ×2 (05:49→18:00)
[2019-05-29 08:19] VITALS: BP 138/95
[2019-05-29] MEDS: SODIUM CHLORIDE FLUSH 10ML SYR IVF SCH ×2 (09:00→21:30)
[2019-05-29] MEDS: SENNA/DOCUSATE TABLET PO SCH (10:55)
[2019-05-29] MEDS: FAMOTIDINE 20 MG TABLET PO SCH ×2 (10:55→21:29)
[2019-05-29] MEDS: LACTULOSE 20 GM/30 ML UDC PO SCH ×2 (10:55→21:30)
[2019-05-29] MEDS: ACETAMINOPHEN 650 MG/20.3 ML UDC PO PRN (11:28)
[2019-05-29 16:17] VITALS: BP 135/105
[2019-05-29 17:16] VITALS: BP 128/87
[2019-05-29 20:37] VITALS: BP 129/77
[2019-05-30 03:55] VITALS: BP 136/84
[2019-05-30] MEDS: METOPROLOL TARTRATE 25 MG TAB PO SCH ×2 (06:15→17:43)
[2019-05-30] MEDS: LACTULOSE 20 GM/30 ML UDC PO SCH ×2 (07:53→22:26)
[2019-05-30] MEDS: SODIUM CHLORIDE FLUSH 10ML SYR IVF SCH ×2 (07:54→21:00)
[2019-05-30] MEDS: SENNA/DOCUSATE TABLET PO SCH (07:54)
[2019-05-30] MEDS: FAMOTIDINE 20 MG TABLET PO SCH ×2 (07:54→22:26)
[2019-05-30 07:59] VITALS: BP 132/86
[2019-05-30 12:48] VITALS: BP 136/104
--- NOTE | 2019-05-30 16:33 | NUR ---
Green sheet posted for pt to be OOB to w/c for meals and L hand splint wearing schedule Addendum: 05/30/19 at 1635 by TEREZA YARBROUGH OT Amended: Links added.
[2019-05-30 19:39] VITALS: BP 127/86
[2019-05-31 00:35] VITALS: BP 121/79
[2019-05-31 05:36] VITALS: BP 135/95
[2019-05-31] MEDS: METOPROLOL TARTRATE 25 MG TAB PO SCH ×2 (05:37→16:55)
[2019-05-31 07:00] VITALS: BP 123/84
[2019-05-31] MEDS: FAMOTIDINE 20 MG TABLET PO SCH ×2 (08:10→22:18)
[2019-05-31] MEDS: LACTULOSE 20 GM/30 ML UDC PO SCH ×2 (08:10→22:19)
[2019-05-31] MEDS: SODIUM CHLORIDE FLUSH 10ML SYR IVF SCH ×2 (08:11→21:00)
[2019-05-31] MEDS: SENNA/DOCUSATE TABLET PO SCH (08:11)
[2019-05-31 14:00] VITALS: BP 140/75
[2019-05-31 20:24] VITALS: BP 124/76
[2019-06-01 03:56] VITALS: BP 142/94
[2019-06-01 06:45] VITALS: BP 127/89
[2019-06-01] MEDS: METOPROLOL TARTRATE 25 MG TAB PO SCH ×2 (06:51→17:54)
[2019-06-01] MEDS: FAMOTIDINE 20 MG TABLET PO SCH ×2 (09:00→20:40)
[2019-06-01] MEDS ORDERED: FAMOTIDINE 40 MG TABLET ONE ×2 (10:07→20:31)
[2019-06-01] MEDS: SODIUM CHLORIDE FLUSH 10ML SYR IVF SCH ×2 (10:13→20:40)
[2019-06-01] MEDS: LACTULOSE 20 GM/30 ML UDC PO SCH ×2 (10:13→20:39)
[2019-06-01] MEDS: SENNA/DOCUSATE TABLET PO SCH (10:15)
[2019-06-01 13:52] VITALS: BP 118/78
[2019-06-01 18:23] VITALS: BP 118/80
[2019-06-02 00:21] VITALS: BP 132/93
[2019-06-02] MEDS: METOPROLOL TARTRATE 25 MG TAB PO SCH ×2 (06:03→18:41)
[2019-06-02 08:00] VITALS: BP 142/81
[2019-06-02] MEDS: FAMOTIDINE 20 MG TABLET PO SCH ×2 (09:00→21:00)
[2019-06-02] MEDS: SENNA/DOCUSATE TABLET PO SCH (09:00)
[2019-06-02] MEDS ORDERED: FAMOTIDINE 40 MG TABLET ONE ×2 (10:47→22:05)
[2019-06-02] MEDS: LACTULOSE 20 GM/30 ML UDC PO SCH ×2 (10:50→22:09)
[2019-06-02] MEDS: SODIUM CHLORIDE FLUSH 10ML SYR IVF SCH ×2 (10:51→21:00)
[2019-06-02 14:00] VITALS: BP 127/93
[2019-06-02 19:55] VITALS: BP 126/83
[2019-06-03 02:33] VITALS: BP 133/89
[2019-06-03] MEDS: METOPROLOL TARTRATE 25 MG TAB PO SCH ×2 (06:04→17:55)
[2019-06-03 06:56] VITALS: BP 142/96
[2019-06-03] MEDS ORDERED: FAMOTIDINE 40 MG TABLET ONE ×2 (08:43→21:34)
[2019-06-03] MEDS: LACTULOSE 20 GM/30 ML UDC PO SCH ×2 (08:48→21:45)
[2019-06-03] MEDS: SENNA/DOCUSATE TABLET PO SCH (08:48)
[2019-06-03] MEDS: FAMOTIDINE 20 MG TABLET PO SCH ×2 (08:49→21:00)
[2019-06-03] MEDS: SODIUM CHLORIDE FLUSH 10ML SYR IVF SCH (09:00)
[2019-06-03] MEDS: ACETAMINOPHEN 650 MG/20.3 ML UDC PO PRN (09:16)
[2019-06-03 12:21] VITALS: BP 105/70
[2019-06-03 18:40] VITALS: BP 127/84
[2019-06-04] VITALS (13 sets, daily range): BP systolic 112–146; BP diastolic 73–114
[2019-06-04] MEDS: OXYcodone IR 5MG TABLET PO PRN (03:31)
[2019-06-04] MEDS: METOPROLOL TARTRATE 25 MG TAB PO SCH ×2 (06:00→18:20)
[2019-06-04] MEDS ORDERED: IBUPROFEN 200 MG TABLET PO PRN (08:30)
[2019-06-04] MEDS: SENNA/DOCUSATE TABLET PO SCH (08:57)
[2019-06-04] MEDS: FAMOTIDINE 20 MG TABLET PO SCH ×2 (09:27→21:11)
[2019-06-04] MEDS: LACTULOSE 20 GM/30 ML UDC PO SCH ×2 (09:27→21:11)
[2019-06-05 00:31] VITALS: BP 132/89
[2019-06-05] MEDS: METOPROLOL TARTRATE 25 MG TAB PO SCH ×2 (05:46→17:24)
[2019-06-05 07:15] VITALS: BP 135/74
[2019-06-05] MEDS: SENNA/DOCUSATE TABLET PO SCH (08:49)
[2019-06-05] MEDS: LACTULOSE 20 GM/30 ML UDC PO SCH ×2 (08:49→21:48)
[2019-06-05] MEDS: FAMOTIDINE 20 MG TABLET PO SCH ×2 (08:49→21:48)
[2019-06-05 12:09] VITALS: BP 115/73
[2019-06-05 20:11] VITALS: BP 113/73
[2019-06-06 02:20] VITALS: BP 128/86
[2019-06-06] MEDS: OXYcodone IR 5MG TABLET PO PRN (02:30)
[2019-06-06] MEDS: METOPROLOL TARTRATE 25 MG TAB PO SCH ×2 (06:23→16:53)
[2019-06-06] MEDS: LACTULOSE 20 GM/30 ML UDC PO SCH ×2 (08:14→23:10)
[2019-06-06] MEDS: SENNA/DOCUSATE TABLET PO SCH (08:14)
[2019-06-06] MEDS: FAMOTIDINE 20 MG TABLET PO SCH ×2 (09:00→23:24)
[2019-06-06 09:05] VITALS: BP 124/83
[2019-06-06 11:45] VITALS: BP 117/80
[2019-06-06 12:26] VITALS: BP 112/67
[2019-06-06 19:02] VITALS: BP 116/75
[2019-06-07 01:05] VITALS: BP 123/77
[2019-06-07] MEDS: ACETAMINOPHEN 650 MG/20.3 ML UDC PO PRN (02:43)
[2019-06-07] MEDS: METOPROLOL TARTRATE 25 MG TAB PO SCH ×2 (05:31→16:54)
[2019-06-07] MEDS: OXYcodone IR 5MG TABLET PO PRN ×2 (05:46→21:11)
[2019-06-07 08:53] VITALS: BP 103/67
[2019-06-07] MEDS: FAMOTIDINE 20 MG TABLET PO SCH ×2 (09:00→21:46)
[2019-06-07] MEDS: SENNA/DOCUSATE TABLET PO SCH (09:07)
[2019-06-07] MEDS: LACTULOSE 20 GM/30 ML UDC PO SCH ×2 (09:07→21:11)
[2019-06-07 11:52] VITALS: BP 124/86
[2019-06-07 13:13] VITALS: BP 121/78
[2019-06-07 19:07] VITALS: BP 124/76
[2019-06-08 01:11] VITALS: BP 121/69
[2019-06-08] MEDS: METOPROLOL TARTRATE 25 MG TAB PO SCH ×2 (05:33→17:11)
[2019-06-08 07:42] VITALS: BP 127/76
[2019-06-08] MEDS: FAMOTIDINE 20 MG TABLET PO SCH ×2 (09:00→21:51)
[2019-06-08] MEDS: LACTULOSE 20 GM/30 ML UDC PO SCH ×2 (09:50→21:50)
[2019-06-08] MEDS: SENNA/DOCUSATE TABLET PO SCH (09:50)
[2019-06-08 12:59] VITALS: BP 114/73
[2019-06-08] MEDS: OXYcodone IR 5MG TABLET PO PRN (15:58)
[2019-06-08 20:10] VITALS: BP 116/76
[2019-06-09 01:34] VITALS: BP 127/89
[2019-06-09] MEDS: METOPROLOL TARTRATE 25 MG TAB PO SCH ×2 (05:16→18:08)
[2019-06-09 05:20] VITALS: BP 124/87
[2019-06-09 07:14] VITALS: BP 110/74
[2019-06-09] MEDS: FAMOTIDINE 10 MG TAB PO SCH ×2 (08:43→20:43)
[2019-06-09] MEDS: SENNA/DOCUSATE TABLET PO SCH (08:43)
[2019-06-09] MEDS: LACTULOSE 20 GM/30 ML UDC PO SCH ×2 (08:43→20:43)
[2019-06-09 12:03] VITALS: BP 122/79
[2019-06-09 20:11] VITALS: BP 115/63
[2019-06-10 01:52] VITALS: BP 135/90
[2019-06-10] MEDS: OXYcodone IR 5MG TABLET PO PRN ×2 (03:41→23:01)
[2019-06-10] MEDS: METOPROLOL TARTRATE 25 MG TAB PO SCH ×2 (05:54→18:10)
[2019-06-10 07:39] VITALS: BP 118/74
[2019-06-10] MEDS: FAMOTIDINE 10 MG TAB PO SCH ×2 (08:45→20:24)
[2019-06-10] MEDS: LACTULOSE 20 GM/30 ML UDC PO SCH ×2 (08:45→20:23)
[2019-06-10] MEDS: SENNA/DOCUSATE TABLET PO SCH (08:45)
[2019-06-10 13:15] VITALS: BP 105/72
[2019-06-10 19:43] VITALS: BP 127/85
[2019-06-11 01:45] VITALS: BP 137/91
[2019-06-11] MEDS: METOPROLOL TARTRATE 25 MG TAB PO SCH ×2 (05:29→18:17)
[2019-06-11] MEDS: SENNA/DOCUSATE TABLET PO SCH (08:58)
[2019-06-11] MEDS: FAMOTIDINE 10 MG TAB PO SCH ×2 (08:58→19:55)
[2019-06-11] MEDS: LACTULOSE 20 GM/30 ML UDC PO SCH ×2 (08:58→19:55)
[2019-06-11 11:24] VITALS: BP 132/88
[2019-06-11 13:33] VITALS: BP 129/78
[2019-06-11] MEDS: OXYcodone IR 5MG TABLET PO PRN (18:16)
[2019-06-11 20:08] VITALS: BP 124/86
[2019-06-12 02:11] VITALS: BP 134/86
[2019-06-12 05:26] VITALS: BP 142/96
[2019-06-12] MEDS: METOPROLOL TARTRATE 25 MG TAB PO SCH ×2 (05:27→18:36)
[2019-06-12 07:02] VITALS: BP 121/81
[2019-06-12] MEDS: LACTULOSE 20 GM/30 ML UDC PO SCH ×2 (10:15→21:25)
[2019-06-12] MEDS: FAMOTIDINE 10 MG TAB PO SCH ×2 (10:16→21:26)
[2019-06-12] MEDS: SENNA/DOCUSATE TABLET PO SCH (10:16)
[2019-06-12] MEDS: OXYcodone IR 5MG TABLET PO PRN ×3 (10:41→21:24)
[2019-06-12 13:23] VITALS: BP 126/78
[2019-06-12 19:22] VITALS: BP 119/79
[2019-06-13 03:06] VITALS: BP 128/73
[2019-06-13] MEDS: METOPROLOL TARTRATE 25 MG TAB PO SCH ×2 (06:44→18:07)
[2019-06-13 08:05] VITALS: BP 101/61
[2019-06-13] MEDS: LACTULOSE 20 GM/30 ML UDC PO SCH ×2 (10:13→21:49)
[2019-06-13] MEDS: FAMOTIDINE 10 MG TAB PO SCH ×2 (10:13→21:49)
[2019-06-13] MEDS: SENNA/DOCUSATE TABLET PO SCH (10:13)
[2019-06-13 11:17] VITALS: BP 114/73
[2019-06-13 14:10] VITALS: BP 146/92
[2019-06-13 16:25] VITALS: BP 130/85
[2019-06-13 18:43] VITALS: BP 138/82
[2019-06-14 01:24] VITALS: BP 131/81
[2019-06-14] MEDS: METOPROLOL TARTRATE 25 MG TAB PO SCH ×2 (06:26→18:17)
[2019-06-14 06:59] LABS: BASOPHILS # (AUTO) 0.07 x10^3/uL (0-0.1); BASOPHILS % (AUTO) 1 % (0-1); EOSINOPHILS # (AUTO) 0.68 x10^3/uL (0-0.4); EOSINOPHILS % (AUTO) 10 % (1-7); LYMPHOCYTES # (AUTO) 1.69 x10^3/uL (1-3.4); LYMPHOCYTES % (AUTO) 26 % (22-44); MD NO; MEAN CORPUSCULAR HEMOGLOBIN 32.3 pg (27.5-34.5); MEAN CORPUSCULAR HGB CONC 33.5 g/dL (33.2-36.2); MEAN CORPUSCULAR VOLUME 96.7 fL (81-97); MONOCYTES # (AUTO) 0.64 x10^3/uL (0.2-0.8); MONOCYTES % (AUTO) 10 % (2-9); NEUTROPHILS # (AUTO) 3.52 x10^3/uL (1.8-6.8); NEUTROPHILS % (AUTO) 53 % (42-75); PLATELET COUNT 360 x10^3/uL (130-400); RED BLOOD COUNT 4.62 x10^6/uL (4.38-5.82); RED CELL DISTRIBUTION WIDTH 12.8 % (9.4-14.8)
[2019-06-14 07:21] LABS: CHLORIDE 106 mmol/L (98-107)
[2019-06-14 07:31] LABS: ALANINE AMINOTRANSFERASE 102 U/L (12-78); ALBUMIN 3.3 g/dL (3.4-5.0); ALKALINE PHOSPHATASE 81 U/L (45-117); ANION GAP 8 mmol/L (5-15); BILIRUBIN,TOTAL 0.5 mg/dL (0.2-1.0); CALCIUM 8.6 mg/dL (8.5-10.1); CREATININE 0.75 mg/dL (0.7-1.3); TOTAL PROTEIN 7.2 g/dL (6.4-8.2)
[2019-06-14 08:38] VITALS: BP 105/83
[2019-06-14] MEDS: FAMOTIDINE 10 MG TAB PO SCH ×2 (08:41→20:33)
[2019-06-14] MEDS: SENNA/DOCUSATE TABLET PO SCH (08:41)
[2019-06-14] MEDS: OXYcodone IR 5MG TABLET PO PRN ×2 (12:36→20:34)
[2019-06-14 14:32] VITALS: BP 120/80
[2019-06-14 18:48] VITALS: BP 124/86
[2019-06-15] MEDS: OXYcodone IR 5MG TABLET PO PRN ×4 (00:36→23:50)
[2019-06-15 04:03] VITALS: BP 118/83
[2019-06-15 05:25] VITALS: BP 128/84
[2019-06-15] MEDS: METOPROLOL TARTRATE 25 MG TAB PO SCH ×2 (05:32→18:33)
[2019-06-15 06:47] VITALS: BP 120/83
[2019-06-15] MEDS: FAMOTIDINE 10 MG TAB PO SCH ×2 (09:32→20:39)
[2019-06-15] MEDS: SENNA/DOCUSATE TABLET PO SCH (09:33)
[2019-06-15 15:34] VITALS: BP 125/79
[2019-06-15 20:24] VITALS: BP 119/76
[2019-06-16 02:04] VITALS: BP 123/82
[2019-06-16] MEDS: POLYETHYLENE GLYCOL 17 GM PACKET PO PRN (03:47)
[2019-06-16] MEDS: OXYcodone IR 5MG TABLET PO PRN ×4 (03:49→21:15)
[2019-06-16 05:21] VITALS: BP 128/79
[2019-06-16] MEDS: METOPROLOL TARTRATE 25 MG TAB PO SCH ×2 (05:26→18:08)
[2019-06-16 07:54] VITALS: BP 126/82
[2019-06-16] MEDS: FAMOTIDINE 10 MG TAB PO SCH ×2 (09:56→21:14)
[2019-06-16] MEDS: SENNA/DOCUSATE TABLET PO SCH (09:56)
[2019-06-16 12:12] VITALS: BP 122/85
[2019-06-16] MEDS: ARTIFICIAL TEARS 15 DROP/ML BOTTLE EACHEYE PRN (18:08)
[2019-06-16 20:32] VITALS: BP 133/83
[2019-06-17 02:09] VITALS: BP 111/76
[2019-06-17 05:20] VITALS: BP 142/92
[2019-06-17] MEDS: METOPROLOL TARTRATE 25 MG TAB PO SCH ×2 (05:21→18:00)
[2019-06-17 06:51] VITALS: BP 124/89
[2019-06-17] MEDS: SENNA/DOCUSATE TABLET PO SCH (08:35)
[2019-06-17] MEDS: FAMOTIDINE 10 MG TAB PO SCH ×2 (08:35→22:18)
[2019-06-17] MEDS: OXYcodone IR 5MG TABLET PO PRN ×3 (08:35→22:46)
[2019-06-17] MEDS: ARTIFICIAL TEARS 15 DROP/ML BOTTLE EACHEYE PRN (08:37)
[2019-06-17 12:12] VITALS: BP 113/73
[2019-06-17 20:20] VITALS: BP 125/76
[2019-06-17] MEDS: POLYETHYLENE GLYCOL 17 GM PACKET PO PRN (22:46)
[2019-06-18 02:27] VITALS: BP 122/74
[2019-06-18 06:24] VITALS: BP 116/78
[2019-06-18] MEDS: OXYcodone IR 5MG TABLET PO PRN ×3 (06:25→15:47)
[2019-06-18] MEDS: METOPROLOL TARTRATE 25 MG TAB PO SCH ×2 (06:26→17:54)
[2019-06-18 08:50] VITALS: BP 113/73
[2019-06-18] MEDS: FAMOTIDINE 10 MG TAB PO SCH ×2 (08:55→20:52)
[2019-06-18] MEDS: SENNA/DOCUSATE TABLET PO SCH (08:56)
[2019-06-18 13:22] VITALS: BP 107/62
[2019-06-18 19:38] VITALS: BP 114/79
[2019-06-19] MEDS: OXYcodone IR 5MG TABLET PO PRN ×4 (00:53→20:49)
[2019-06-19 01:35] VITALS: BP 114/73
[2019-06-19] MEDS: METOPROLOL TARTRATE 25 MG TAB PO SCH ×2 (06:19→17:04)
[2019-06-19 07:20] VITALS: BP 138/88
[2019-06-19] MEDS: SENNA/DOCUSATE TABLET PO SCH (07:54)
[2019-06-19] MEDS: POLYETHYLENE GLYCOL 17 GM PACKET PO PRN (07:54)
[2019-06-19] MEDS: FAMOTIDINE 10 MG TAB PO SCH ×2 (07:54→20:48)
[2019-06-19 12:39] VITALS: BP 119/82
[2019-06-19 20:36] VITALS: BP 105/69
[2019-06-20 04:16] VITALS: BP 110/75
[2019-06-20] MEDS: METOPROLOL TARTRATE 25 MG TAB PO SCH ×2 (06:20→17:50)
[2019-06-20 08:45] VITALS: BP 124/80
[2019-06-20] MEDS: FAMOTIDINE 10 MG TAB PO SCH ×2 (09:16→20:13)
[2019-06-20] MEDS: SENNA/DOCUSATE TABLET PO SCH (09:16)
[2019-06-20] MEDS: OXYcodone IR 5MG TABLET PO PRN ×2 (09:31→13:48)
[2019-06-20 13:40] VITALS: BP 119/80
[2019-06-20 16:32] VITALS: BP 122/78
[2019-06-20 20:09] VITALS: BP 130/75
[2019-06-21 02:31] VITALS: BP 131/86
[2019-06-21] MEDS: METOPROLOL TARTRATE 25 MG TAB PO SCH ×2 (06:31→17:06)
[2019-06-21 07:28] VITALS: BP 143/90
[2019-06-21] MEDS: FAMOTIDINE 10 MG TAB PO SCH ×2 (07:55→22:11)
[2019-06-21] MEDS: SENNA/DOCUSATE TABLET PO SCH (07:56)
[2019-06-21] MEDS: OXYcodone IR 5MG TABLET PO PRN ×3 (07:56→22:23)
[2019-06-21 13:21] VITALS: BP 96/61
[2019-06-21 17:14] VITALS: BP 127/78
[2019-06-21 19:55] VITALS: BP 129/84
[2019-06-22 02:07] VITALS: BP 128/77
[2019-06-22] MEDS: OXYcodone IR 5MG TABLET PO PRN ×2 (03:12→19:58)
[2019-06-22] MEDS: METOPROLOL TARTRATE 25 MG TAB PO SCH ×2 (06:33→18:31)
[2019-06-22 08:00] VITALS: BP 133/84
[2019-06-22] MEDS: SENNA/DOCUSATE TABLET PO SCH (09:00)
[2019-06-22] MEDS: FAMOTIDINE 10 MG TAB PO SCH ×2 (10:01→20:52)
[2019-06-22 14:00] VITALS: BP 133/57
[2019-06-22 19:25] VITALS: BP 123/79
[2019-06-23 01:49] VITALS: BP 123/79
[2019-06-23] MEDS: METOPROLOL TARTRATE 25 MG TAB PO SCH ×2 (06:00→18:01)
[2019-06-23 08:52] VITALS: BP 115/73
[2019-06-23] MEDS: SENNA/DOCUSATE TABLET PO SCH (09:09)
[2019-06-23] MEDS: FAMOTIDINE 10 MG TAB PO SCH ×2 (09:09→20:23)
[2019-06-23 14:58] VITALS: BP 118/75
[2019-06-23 19:35] VITALS: BP 105/66
[2019-06-24 01:51] VITALS: BP 128/88
[2019-06-24] MEDS: METOPROLOL TARTRATE 25 MG TAB PO SCH ×2 (06:01→18:58)
[2019-06-24 07:00] VITALS: BP 123/88
[2019-06-24] MEDS: SENNA/DOCUSATE TABLET PO SCH (10:21)
[2019-06-24] MEDS: FAMOTIDINE 10 MG TAB PO SCH ×2 (10:21→21:05)
[2019-06-24 12:18] VITALS: BP 127/83
[2019-06-24] MEDS: OXYcodone IR 5MG TABLET PO PRN (15:50)
[2019-06-24 20:29] VITALS: BP 121/78
[2019-06-25 01:15] VITALS: BP 114/74
[2019-06-25] MEDS: OXYcodone IR 5MG TABLET PO PRN ×2 (03:22→22:37)
[2019-06-25 05:06] VITALS: BP 120/75
[2019-06-25] MEDS: METOPROLOL TARTRATE 25 MG TAB PO SCH ×2 (05:07→17:00)
[2019-06-25 07:45] VITALS: BP 134/87
[2019-06-25] MEDS: FAMOTIDINE 10 MG TAB PO SCH ×2 (09:40→22:25)
[2019-06-25] MEDS: SENNA/DOCUSATE TABLET PO SCH (09:40)
[2019-06-25 12:53] VITALS: BP 130/86
[2019-06-25 20:05] VITALS: BP 125/73
[2019-06-25 22:27] VITALS: BP 139/88
[2019-06-26 01:22] VITALS: BP 131/83
[2019-06-26 05:46] VITALS: BP 136/86
[2019-06-26] MEDS: METOPROLOL TARTRATE 25 MG TAB PO SCH ×2 (05:48→18:17)
[2019-06-26 07:05] VITALS: BP 122/83
[2019-06-26] MEDS: FAMOTIDINE 10 MG TAB PO SCH ×2 (10:08→20:53)
[2019-06-26] MEDS: SENNA/DOCUSATE TABLET PO SCH (10:08)
[2019-06-26] MEDS: OXYcodone IR 5MG TABLET PO PRN ×2 (10:10→21:39)
[2019-06-26 11:08] LABS: BASOPHILS # (AUTO) 0.09 x10^3/uL (0-0.1); BASOPHILS % (AUTO) 1 % (0-1); EOSINOPHILS # (AUTO) 0.61 x10^3/uL (0-0.4); EOSINOPHILS % (AUTO) 8 % (1-7); LYMPHOCYTES % (AUTO) 21 % (22-44); MD NO; MEAN CORPUSCULAR HEMOGLOBIN 31.8 pg (27.5-34.5); MEAN CORPUSCULAR HGB CONC 33.2 g/dL (33.2-36.2); MEAN CORPUSCULAR VOLUME 95.8 fL (81-97); MEAN PLATELET VOLUME 6.5 fL (7.4-10.4); MONOCYTES # (AUTO) 0.67 x10^3/uL (0.2-0.8); MONOCYTES % (AUTO) 9 % (2-9); NEUTROPHILS # (AUTO) 4.59 x10^3/uL (1.8-6.8); NEUTROPHILS % (AUTO) 61 % (42-75); PLATELET COUNT 336 x10^3/uL (130-400); RED BLOOD COUNT 4.97 x10^6/uL (4.38-5.82)
[2019-06-26 11:16] LABS: ALBUMIN 3.5 g/dL (3.4-5.0); ANION GAP 5 mmol/L (5-15); CALCIUM 8.9 mg/dL (8.5-10.1); CHLORIDE 105 mmol/L (98-107)
[2019-06-26 11:21] LABS: ALANINE AMINOTRANSFERASE 46 U/L (12-78); ALKALINE PHOSPHATASE 84 U/L (45-117); BILIRUBIN,TOTAL 0.4 mg/dL (0.2-1.0); CREATININE 0.78 mg/dL (0.7-1.3); TOTAL PROTEIN 7.6 g/dL (6.4-8.2)
[2019-06-26 12:27] VITALS: BP 116/72
[2019-06-26] MEDS ORDERED: SIMETHICONE DROPS 40 MG/0.6 ML BOTTLE PO PRN (15:30)
[2019-06-26] MEDS: POLYETHYLENE GLYCOL 17 GM PACKET PO PRN (16:27)
[2019-06-26 19:36] VITALS: BP 115/71
[2019-06-26 20:52] VITALS: BP 110/71
[2019-06-27 00:55] VITALS: BP 120/83
[2019-06-27 05:46] VITALS: BP 124/79
[2019-06-27] MEDS: METOPROLOL TARTRATE 25 MG TAB PO SCH ×2 (05:48→17:54)
[2019-06-27 09:09] VITALS: BP 122/82
[2019-06-27] MEDS: FAMOTIDINE 10 MG TAB PO SCH ×2 (10:09→20:10)
[2019-06-27] MEDS: SENNA/DOCUSATE TABLET PO SCH (10:09)
[2019-06-27] MEDS: OXYcodone IR 5MG TABLET PO PRN ×2 (10:12→16:08)
[2019-06-27 12:08] VITALS: BP 119/73
[2019-06-27 19:26] VITALS: BP 104/77
[2019-06-28 00:45] VITALS: BP 127/82
[2019-06-28] MEDS: METOPROLOL TARTRATE 25 MG TAB PO SCH ×2 (05:00→18:15)
[2019-06-28] MEDS: OXYcodone IR 5MG TABLET PO PRN ×2 (05:01→11:53)
[2019-06-28 07:30] VITALS: BP 111/74
[2019-06-28] MEDS: SENNA/DOCUSATE TABLET PO SCH (09:39)
[2019-06-28] MEDS: FAMOTIDINE 10 MG TAB PO SCH ×2 (09:39→21:05)
[2019-06-28 14:00] VITALS: BP 118/76
[2019-06-28] MEDS ORDERED: DIPHENHYDRAMINE 25 MG CAPSULE ONE (15:17)
[2019-06-28] MEDS ORDERED: DIPHENHYDRAMINE 25 MG CAPSULE PO PRN (15:30)
[2019-06-28 19:22] VITALS: BP 115/77
[2019-06-29 00:39] VITALS: BP 122/86
[2019-06-29] MEDS: METOPROLOL TARTRATE 25 MG TAB PO SCH ×2 (05:55→17:06)
[2019-06-29] MEDS: OXYcodone IR 5MG TABLET PO PRN ×3 (06:42→17:06)
[2019-06-29 07:37] VITALS: BP 124/76
[2019-06-29] MEDS: SENNA/DOCUSATE TABLET PO SCH (09:55)
[2019-06-29] MEDS: FAMOTIDINE 10 MG TAB PO SCH ×2 (09:55→21:28)
[2019-06-29 13:27] VITALS: BP 119/60
[2019-06-29] MEDS: ACETAMINOPHEN 650 MG/20.3 ML UDC PO PRN (18:17)
[2019-06-29 20:35] VITALS: BP 115/73
[2019-06-30] MEDS: OXYcodone IR 5MG TABLET PO PRN ×3 (00:35→21:41)
[2019-06-30 02:26] VITALS: BP 130/80
[2019-06-30] MEDS: METOPROLOL TARTRATE 25 MG TAB PO SCH ×2 (06:13→17:11)
[2019-06-30 07:09] VITALS: BP 124/80
[2019-06-30] MEDS: FAMOTIDINE 10 MG TAB PO SCH ×2 (08:59→21:40)
[2019-06-30] MEDS: POLYETHYLENE GLYCOL 17 GM PACKET PO PRN (09:00)
[2019-06-30] MEDS: SENNA/DOCUSATE TABLET PO SCH (09:00)
[2019-06-30] MEDS: ACETAMINOPHEN 650 MG/20.3 ML UDC PO PRN (09:00)
[2019-06-30 13:42] VITALS: BP 123/77
[2019-06-30 18:59] VITALS: BP 145/71
[2019-07-01 02:22] VITALS: BP 122/72
[2019-07-01 05:11] VITALS: BP 150/100
[2019-07-01] MEDS: METOPROLOL TARTRATE 25 MG TAB PO SCH ×2 (05:14→17:26)
[2019-07-01] MEDS: OXYcodone IR 5MG TABLET PO PRN ×3 (05:21→20:27)
[2019-07-01 07:52] VITALS: BP 128/78
[2019-07-01] MEDS: FAMOTIDINE 10 MG TAB PO SCH ×2 (10:26→20:26)
[2019-07-01] MEDS: SENNA/DOCUSATE TABLET PO SCH (10:26)
[2019-07-01 12:47] VITALS: BP 123/78
[2019-07-01 20:33] VITALS: BP 120/74
[2019-07-02 00:48] VITALS: BP 160/108
[2019-07-02] MEDS: OXYcodone IR 5MG TABLET PO PRN ×6 (01:54→22:20)
[2019-07-02 05:14] VITALS: BP 131/84
[2019-07-02] MEDS: METOPROLOL TARTRATE 25 MG TAB PO SCH ×2 (05:18→18:00)
[2019-07-02 07:35] VITALS: BP 115/66
[2019-07-02] MEDS: FAMOTIDINE 10 MG TAB PO SCH ×2 (08:15→20:55)
[2019-07-02] MEDS: SENNA/DOCUSATE TABLET PO SCH (08:16)
[2019-07-02 11:45] VITALS: BP 107/67
[2019-07-02 14:00] VITALS: BP 127/82
[2019-07-02 20:53] VITALS: BP 113/75
[2019-07-03 03:50] VITALS: BP 136/83
[2019-07-03 06:17] VITALS: BP 133/81
[2019-07-03] MEDS: METOPROLOL TARTRATE 25 MG TAB PO SCH ×2 (06:20→17:58)
[2019-07-03] MEDS: OXYcodone IR 5MG TABLET PO PRN ×3 (07:28→22:15)
[2019-07-03] MEDS: SENNA/DOCUSATE TABLET PO SCH (07:28)
[2019-07-03] MEDS: FAMOTIDINE 10 MG TAB PO SCH ×2 (07:28→19:58)
[2019-07-03 07:30] VITALS: BP 121/71
[2019-07-03 13:48] VITALS: BP 115/74
[2019-07-03 19:28] VITALS: BP 125/79
[2019-07-04 01:13] VITALS: BP 132/72
[2019-07-04] MEDS: OXYcodone IR 5MG TABLET PO PRN ×4 (04:42→21:52)
[2019-07-04 06:16] VITALS: BP 147/90
[2019-07-04] MEDS: METOPROLOL TARTRATE 25 MG TAB PO SCH ×2 (06:18→17:43)
[2019-07-04 07:43] VITALS: BP 126/82
[2019-07-04] MEDS: FAMOTIDINE 10 MG TAB PO SCH ×2 (08:29→20:54)
[2019-07-04] MEDS: SENNA/DOCUSATE TABLET PO SCH (08:29)
[2019-07-04] MEDS: POLYETHYLENE GLYCOL 17 GM PACKET PO PRN (08:34)
[2019-07-04 13:41] VITALS: BP 105/66
[2019-07-04 20:49] VITALS: BP 129/80
[2019-07-05 01:52] VITALS: BP 120/77
[2019-07-05] MEDS: OXYcodone IR 5MG TABLET PO PRN ×4 (04:15→22:15)
[2019-07-05 06:10] VITALS: BP 128/82
[2019-07-05] MEDS: METOPROLOL TARTRATE 25 MG TAB PO SCH ×2 (06:12→17:02)
[2019-07-05] MEDS: SENNA/DOCUSATE TABLET PO SCH (08:26)
[2019-07-05] MEDS: FAMOTIDINE 10 MG TAB PO SCH ×2 (08:26→21:34)
[2019-07-05] MEDS: POLYETHYLENE GLYCOL 17 GM PACKET PO PRN (08:26)
[2019-07-05 09:47] VITALS: BP 132/85
[2019-07-05 15:23] VITALS: BP 124/79
[2019-07-05 19:40] VITALS: BP 122/74
[2019-07-06 00:37] VITALS: BP 124/80
[2019-07-06 07:00] VITALS: BP 142/82
[2019-07-06] MEDS: METOPROLOL TARTRATE 25 MG TAB PO SCH ×2 (07:14→18:23)
[2019-07-06] MEDS: SENNA/DOCUSATE TABLET PO SCH (09:27)
[2019-07-06] MEDS: FAMOTIDINE 10 MG TAB PO SCH ×2 (09:27→20:01)
[2019-07-06] MEDS: OXYcodone IR 5MG TABLET PO PRN ×4 (09:41→23:54)
[2019-07-06 14:08] VITALS: BP 120/77
[2019-07-06 17:50] VITALS: BP 152/85
[2019-07-06 20:15] VITALS: BP 118/74
[2019-07-07] VITALS (7 sets, daily range): BP systolic 116–154; BP diastolic 75–89
[2019-07-07] MEDS: METOPROLOL TARTRATE 25 MG TAB PO SCH ×2 (05:34→17:48)
[2019-07-07] MEDS: SENNA/DOCUSATE TABLET PO SCH (08:26)
[2019-07-07] MEDS: FAMOTIDINE 10 MG TAB PO SCH ×2 (08:27→20:13)
[2019-07-07] MEDS: OXYcodone IR 5MG TABLET PO PRN ×2 (08:35→19:17)
[2019-07-07] MEDS: BISACODYL 10 MG SUPP PR PRN (10:50)
[2019-07-08] MEDS: OXYcodone IR 5MG TABLET PO PRN ×2 (02:04→13:04)
[2019-07-08 02:18] VITALS: BP 116/70
[2019-07-08 05:30] VITALS: BP 128/82
[2019-07-08] MEDS: METOPROLOL TARTRATE 25 MG TAB PO SCH ×2 (05:30→17:27)
[2019-07-08 07:28] VITALS: BP 115/73
[2019-07-08] MEDS: FAMOTIDINE 10 MG TAB PO SCH ×2 (08:23→20:56)
[2019-07-08] MEDS: SENNA/DOCUSATE TABLET PO SCH (08:23)
[2019-07-08 14:00] VITALS: BP 113/72
[2019-07-08 19:26] VITALS: BP 118/77
[2019-07-09 00:33] VITALS: BP 123/79
[2019-07-09] MEDS: OXYcodone IR 5MG TABLET PO PRN ×4 (02:13→22:16)
[2019-07-09 05:36] VITALS: BP 144/93
[2019-07-09] MEDS: METOPROLOL TARTRATE 25 MG TAB PO SCH ×2 (05:39→17:56)
[2019-07-09] MEDS: SENNA/DOCUSATE TABLET PO SCH (07:35)
[2019-07-09] MEDS: FAMOTIDINE 10 MG TAB PO SCH ×2 (07:35→20:37)
[2019-07-09 07:53] VITALS: BP 122/77
[2019-07-09 14:00] VITALS: BP 144/91
[2019-07-09 19:55] VITALS: BP 124/79
[2019-07-10 02:05] VITALS: BP 126/75
[2019-07-10] MEDS: OXYcodone IR 5MG TABLET PO PRN ×3 (04:02→20:20)
[2019-07-10] MEDS: METOPROLOL TARTRATE 25 MG TAB PO SCH ×2 (06:22→17:55)
[2019-07-10 07:51] VITALS: BP 125/83
[2019-07-10] MEDS: FAMOTIDINE 10 MG TAB PO SCH ×2 (09:18→20:19)
[2019-07-10] MEDS: SENNA/DOCUSATE TABLET PO SCH (09:18)
[2019-07-10 15:27] VITALS: BP 122/76
[2019-07-10 20:35] VITALS: BP 133/75
[2019-07-11 00:20] VITALS: BP 112/68
[2019-07-11] MEDS: OXYcodone IR 5MG TABLET PO PRN ×3 (02:00→21:21)
[2019-07-11] MEDS: METOPROLOL TARTRATE 25 MG TAB PO SCH ×2 (06:22→17:24)
[2019-07-11] MEDS: SENNA/DOCUSATE TABLET PO SCH (08:04)
[2019-07-11] MEDS: FAMOTIDINE 10 MG TAB PO SCH ×2 (08:04→21:20)
[2019-07-11 08:33] VITALS: BP 117/74
[2019-07-11 14:22] VITALS: BP 128/89
[2019-07-11 19:21] VITALS: BP 119/77
[2019-07-12 01:15] VITALS: BP 142/87
[2019-07-12] MEDS: METOPROLOL TARTRATE 25 MG TAB PO SCH ×2 (05:59→17:29)
[2019-07-12] MEDS: FAMOTIDINE 10 MG TAB PO SCH ×2 (07:57→20:35)
[2019-07-12] MEDS: SENNA/DOCUSATE TABLET PO SCH (07:57)
[2019-07-12] MEDS: POLYETHYLENE GLYCOL 17 GM PACKET PO PRN (07:57)
[2019-07-12 09:16] VITALS: BP 134/87
[2019-07-12] MEDS: OXYcodone IR 5MG TABLET PO PRN ×3 (10:19→20:35)
[2019-07-12 12:53] VITALS: BP 117/77
[2019-07-12 18:58] VITALS: BP 113/71
[2019-07-13 00:47] VITALS: BP 129/83
[2019-07-13 05:39] VITALS: BP 134/95
[2019-07-13] MEDS: METOPROLOL TARTRATE 25 MG TAB PO SCH ×2 (05:41→16:58)
[2019-07-13 07:04] VITALS: BP 129/85
[2019-07-13] MEDS: FAMOTIDINE 10 MG TAB PO SCH ×2 (08:55→21:07)
[2019-07-13] MEDS: SENNA/DOCUSATE TABLET PO SCH (08:55)
[2019-07-13] MEDS: POLYETHYLENE GLYCOL 17 GM PACKET PO PRN (08:55)
[2019-07-13] MEDS: OXYcodone IR 5MG TABLET PO PRN ×2 (10:06→19:17)
[2019-07-13 13:09] VITALS: BP 121/75
[2019-07-13 19:20] VITALS: BP 117/65
[2019-07-14 00:40] VITALS: BP 122/77
[2019-07-14] MEDS: OXYcodone IR 5MG TABLET PO PRN ×3 (02:02→16:38)
[2019-07-14] MEDS: METOPROLOL TARTRATE 25 MG TAB PO SCH ×2 (06:09→18:14)
[2019-07-14] MEDS: BISACODYL 10 MG SUPP PR PRN (06:09)
[2019-07-14 07:20] VITALS: BP 128/97
[2019-07-14] MEDS: SENNA/DOCUSATE TABLET PO SCH (09:00)
[2019-07-14] MEDS: LACTOBACILLUS CHEW TABLET PO SCH ×3 (10:28→20:49)
[2019-07-14] MEDS ORDERED: MAGNESIUM CITRATE 300ML ORAL SOL PO ONE (10:30)
[2019-07-14 13:15] VITALS: BP 118/80
[2019-07-14] MEDS: ACETAMINOPHEN 650 MG/20.3 ML UDC PO PRN (18:14)
[2019-07-14 19:43] VITALS: BP 127/84
[2019-07-15 00:49] VITALS: BP 127/86
[2019-07-15] MEDS: OXYcodone IR 5MG TABLET PO PRN ×3 (01:03→16:55)
[2019-07-15 05:54] VITALS: BP 144/88
[2019-07-15] MEDS: METOPROLOL TARTRATE 25 MG TAB PO SCH ×2 (05:57→16:56)
[2019-07-15 08:06] VITALS: BP 121/83
[2019-07-15] MEDS: LACTOBACILLUS CHEW TABLET PO SCH ×3 (08:48→20:38)
[2019-07-15] MEDS: SENNA/DOCUSATE TABLET PO SCH (08:48)
[2019-07-15 14:09] VITALS: BP 134/87
[2019-07-15 18:44] VITALS: BP 142/92
[2019-07-16 00:49] VITALS: BP 121/80
[2019-07-16] MEDS: OXYcodone IR 5MG TABLET PO PRN ×2 (01:49→11:06)
[2019-07-16 06:41] VITALS: BP 148/95
[2019-07-16] MEDS: METOPROLOL TARTRATE 25 MG TAB PO SCH ×2 (06:45→16:42)
[2019-07-16 07:41] VITALS: BP 138/88
[2019-07-16] MEDS: SENNA/DOCUSATE TABLET PO SCH (07:55)
[2019-07-16] MEDS: LACTOBACILLUS CHEW TABLET PO SCH ×3 (07:55→20:59)
[2019-07-16 13:58] VITALS: BP 115/81
[2019-07-16 19:41] VITALS: BP 105/70
[2019-07-17 00:36] VITALS: BP 128/87
[2019-07-17] MEDS: OXYcodone IR 5MG TABLET PO PRN ×3 (02:32→19:27)
[2019-07-17] MEDS: METOPROLOL TARTRATE 25 MG TAB PO SCH ×2 (06:08→16:29)
[2019-07-17 07:19] VITALS: BP 145/95
[2019-07-17] MEDS: LACTOBACILLUS CHEW TABLET PO SCH ×3 (07:38→20:28)
[2019-07-17] MEDS: SENNA/DOCUSATE TABLET PO SCH (07:39)
[2019-07-17 08:25] VITALS: BP 113/75
[2019-07-17] MEDS: POLYETHYLENE GLYCOL 17 GM PACKET PO PRN (13:06)
[2019-07-17 15:44] VITALS: BP 142/92
[2019-07-17 19:04] VITALS: BP 104/68
[2019-07-18 00:34] VITALS: BP 111/77
[2019-07-18] MEDS: OXYcodone IR 5MG TABLET PO PRN ×2 (03:17→13:32)
[2019-07-18] MEDS: METOPROLOL TARTRATE 25 MG TAB PO SCH ×2 (05:48→16:39)
[2019-07-18 08:24] VITALS: BP 131/88
[2019-07-18] MEDS: SENNA/DOCUSATE TABLET PO SCH (09:00)
[2019-07-18] MEDS: LACTOBACILLUS CHEW TABLET PO SCH ×3 (09:08→20:29)
[2019-07-18 14:07] VITALS: BP 108/66
[2019-07-18 20:50] VITALS: BP 128/84
[2019-07-19 01:20] VITALS: BP 136/84
[2019-07-19] MEDS: OXYcodone IR 5MG TABLET PO PRN ×2 (02:19→14:12)
[2019-07-19 05:26] VITALS: BP 143/93
[2019-07-19] MEDS: METOPROLOL TARTRATE 25 MG TAB PO SCH ×2 (05:27→18:14)
[2019-07-19 07:57] VITALS: BP 118/82
[2019-07-19] MEDS: LACTOBACILLUS CHEW TABLET PO SCH ×3 (08:54→21:00)
[2019-07-19] MEDS: SENNA/DOCUSATE TABLET PO SCH (08:54)
[2019-07-19 13:41] VITALS: BP 133/83
[2019-07-19 19:33] VITALS: BP 106/66
[2019-07-20 01:39] VITALS: BP 111/76
[2019-07-20] MEDS: OXYcodone IR 5MG TABLET PO PRN ×2 (02:27→14:54)
[2019-07-20 05:25] VITALS: BP 130/86
[2019-07-20] MEDS: METOPROLOL TARTRATE 25 MG TAB PO SCH ×2 (05:27→17:26)
[2019-07-20 07:08] VITALS: BP 132/85
[2019-07-20] MEDS: LACTOBACILLUS CHEW TABLET PO SCH ×3 (08:10→20:33)
[2019-07-20] MEDS: SENNA/DOCUSATE TABLET PO SCH (08:10)
[2019-07-20 13:03] VITALS: BP 131/85
[2019-07-20 20:30] VITALS: BP 111/75
[2019-07-21] MEDS: OXYcodone IR 5MG TABLET PO PRN ×2 (03:07→15:09)
[2019-07-21 04:19] VITALS: BP 121/76
[2019-07-21] MEDS: METOPROLOL TARTRATE 25 MG TAB PO SCH ×2 (06:05→17:11)
[2019-07-21 07:49] VITALS: BP 135/86
[2019-07-21] MEDS: SENNA/DOCUSATE TABLET PO SCH (08:22)
[2019-07-21] MEDS: LACTOBACILLUS CHEW TABLET PO SCH ×3 (08:22→21:38)
[2019-07-21 14:37] VITALS: BP 123/81
[2019-07-21 20:08] VITALS: BP 126/83
[2019-07-22 00:26] VITALS: BP 121/80
[2019-07-22] MEDS: OXYcodone IR 5MG TABLET PO PRN ×2 (05:12→17:22)
[2019-07-22] MEDS: METOPROLOL TARTRATE 25 MG TAB PO SCH ×2 (06:31→20:43)
[2019-07-22 07:16] VITALS: BP 129/91
[2019-07-22] MEDS: LACTOBACILLUS CHEW TABLET PO SCH ×3 (08:39→20:43)
[2019-07-22] MEDS: SENNA/DOCUSATE TABLET PO SCH (08:39)
[2019-07-22] MEDS: ACETAMINOPHEN 650 MG/20.3 ML UDC PO PRN (12:29)
[2019-07-22 13:00] VITALS: BP 125/80
[2019-07-22 20:39] VITALS: BP 137/86
[2019-07-23 01:18] VITALS: BP 126/78
[2019-07-23] MEDS: OXYcodone IR 5MG TABLET PO PRN (05:25)
[2019-07-23] MEDS: METOPROLOL TARTRATE 25 MG TAB PO SCH ×2 (06:26→20:28)
[2019-07-23 07:19] VITALS: BP 108/65
[2019-07-23] MEDS ORDERED: OXYcodone IR 5MG TABLET PO PRN (07:30)
[2019-07-23] MEDS: LACTOBACILLUS CHEW TABLET PO SCH ×3 (11:00→20:28)
[2019-07-23] MEDS: SENNA/DOCUSATE TABLET PO SCH (11:08)
[2019-07-23 13:16] VITALS: BP 120/78
[2019-07-23] MEDS ORDERED: MAGNESIUM CITRATE 300ML ORAL SOL ONE (15:51)
[2019-07-23 20:27] VITALS: BP 144/84
[2019-07-24 00:54] VITALS: BP 122/76
[2019-07-24] MEDS: METOPROLOL TARTRATE 25 MG TAB PO SCH ×2 (06:09→18:24)
[2019-07-24] MEDS: LACTOBACILLUS CHEW TABLET PO SCH ×3 (09:17→21:04)
[2019-07-24] MEDS: SENNA/DOCUSATE TABLET PO SCH (09:20)
[2019-07-24 12:45] VITALS: BP 117/75
[2019-07-24 21:02] VITALS: BP 117/73
[2019-07-25 06:23] VITALS: BP 147/89
[2019-07-25] MEDS: METOPROLOL TARTRATE 25 MG TAB PO SCH ×2 (06:25→16:23)
[2019-07-25 07:47] VITALS: BP 120/76
[2019-07-25] MEDS: ACETAMINOPHEN 650 MG/20.3 ML UDC PO PRN (08:19)
[2019-07-25] MEDS: LACTOBACILLUS CHEW TABLET PO SCH ×3 (08:19→20:31)
[2019-07-25] MEDS: SENNA/DOCUSATE TABLET PO SCH (08:19)
[2019-07-25 14:00] VITALS: BP 126/81
[2019-07-25 19:29] VITALS: BP 112/77
[2019-07-26 02:30] VITALS: BP 143/55
[2019-07-26] MEDS: METOPROLOL TARTRATE 25 MG TAB PO SCH ×2 (06:20→16:20)
[2019-07-26 08:02] VITALS: BP 121/73
[2019-07-26] MEDS: LACTOBACILLUS CHEW TABLET PO SCH ×3 (08:16→20:25)
[2019-07-26] MEDS: SENNA/DOCUSATE TABLET PO SCH (08:16)
[2019-07-26 14:34] VITALS: BP 111/66
[2019-07-26 18:17] VITALS: BP 116/79
[2019-07-27 00:22] VITALS: BP 120/79
[2019-07-27] MEDS: METOPROLOL TARTRATE 25 MG TAB PO SCH ×2 (06:00→16:21)
[2019-07-27 07:14] VITALS: BP 126/82
[2019-07-27] MEDS: SENNA/DOCUSATE TABLET PO SCH (07:32)
[2019-07-27] MEDS: LACTOBACILLUS CHEW TABLET PO SCH ×3 (07:32→20:52)
[2019-07-27 13:08] VITALS: BP 114/69
[2019-07-27 19:00] VITALS: BP 121/78
[2019-07-27] MEDS ORDERED: OXYcodone IR 5MG TABLET PO ONE (21:00)
[2019-07-28 02:08] VITALS: BP 121/78
[2019-07-28] MEDS: METOPROLOL TARTRATE 25 MG TAB PO SCH ×2 (06:08→17:23)
[2019-07-28 07:48] VITALS: BP 127/80
[2019-07-28] MEDS: LACTOBACILLUS CHEW TABLET PO SCH ×3 (08:59→20:36)
[2019-07-28] MEDS: SENNA/DOCUSATE TABLET PO SCH (08:59)
[2019-07-28 13:15] VITALS: BP_SYST 133; BP_SYST 88; BP_DIAS 80
[2019-07-28] MEDS: ACETAMINOPHEN 325 MG TABLET PO PRN ×2 (14:49→20:45)
[2019-07-28 19:26] VITALS: BP 114/72
[2019-07-29 01:28] VITALS: BP 118/74
[2019-07-29] MEDS: METOPROLOL TARTRATE 25 MG TAB PO SCH ×2 (05:38→17:28)
[2019-07-29 06:45] VITALS: BP 108/72
[2019-07-29] MEDS: SENNA/DOCUSATE TABLET PO SCH (07:56)
[2019-07-29] MEDS: LACTOBACILLUS CHEW TABLET PO SCH ×3 (07:56→19:54)
[2019-07-29] MEDS: ACETAMINOPHEN 325 MG TABLET PO PRN (07:56)
[2019-07-29 15:08] VITALS: BP 119/85
[2019-07-29 19:52] VITALS: BP 116/75
[2019-07-30 01:37] VITALS: BP 130/80
[2019-07-30] MEDS: METOPROLOL TARTRATE 25 MG TAB PO SCH ×2 (05:38→18:20)
[2019-07-30 07:12] VITALS: BP 142/90
[2019-07-30] MEDS: LACTOBACILLUS CHEW TABLET PO SCH ×3 (09:05→20:13)
[2019-07-30] MEDS: SENNA/DOCUSATE TABLET PO SCH (09:05)
[2019-07-30 14:01] VITALS: BP 115/73
[2019-07-30] MEDS: ACETAMINOPHEN 325 MG TABLET PO PRN (19:16)
[2019-07-30 19:34] VITALS: BP 115/72
[2019-07-31 00:44] VITALS: BP 131/77
[2019-07-31] MEDS: METOPROLOL TARTRATE 25 MG TAB PO SCH ×2 (05:25→16:30)
[2019-07-31 08:15] VITALS: BP 133/82
[2019-07-31] MEDS: SENNA/DOCUSATE TABLET PO SCH (09:15)
[2019-07-31] MEDS: LACTOBACILLUS CHEW TABLET PO SCH ×3 (09:15→22:04)
[2019-07-31 14:22] VITALS: BP 116/77
[2019-07-31 14:56] VITALS: BP 117/78
[2019-07-31 19:26] VITALS: BP 114/75
[2019-08-01 01:40] VITALS: BP 127/82
[2019-08-01 05:12] VITALS: BP 129/71
[2019-08-01] MEDS: METOPROLOL TARTRATE 25 MG TAB PO SCH ×2 (05:14→18:05)
[2019-08-01 08:00] VITALS: BP 133/86
[2019-08-01] MEDS: LACTOBACILLUS CHEW TABLET PO SCH ×3 (08:13→19:48)
[2019-08-01] MEDS: SENNA/DOCUSATE TABLET PO SCH (08:14)
[2019-08-01] MEDS ORDERED: PROPOFOL 10 MG/ML, 20ML ONE (13:00)
[2019-08-01] MEDS ORDERED: HYDROmorphone 1 MG/ML, 1ML INJ ONE (14:02)
[2019-08-01 14:30] VITALS: BP 147/94
[2019-08-01] MEDS ORDERED: HYDROmorphone 2 MG/ML, 1ML IVPush PRN (14:30)
[2019-08-01 18:03] VITALS: BP 112/75
[2019-08-01 19:22] VITALS: BP 105/66
[2019-08-02] VITALS (7 sets, daily range): BP systolic 90–125; BP diastolic 60–78
[2019-08-02] MEDS: ACETAMINOPHEN 325 MG TABLET PO PRN ×3 (02:18→20:48)
[2019-08-02] MEDS: METOPROLOL TARTRATE 25 MG TAB PO SCH ×2 (05:03→18:06)
[2019-08-02] MEDS: SENNA/DOCUSATE TABLET PO SCH (09:29)
[2019-08-02] MEDS: LACTOBACILLUS CHEW TABLET PO SCH ×3 (09:29→20:47)
[2019-08-03 01:08] VITALS: BP 115/77
[2019-08-03] MEDS: METOPROLOL TARTRATE 25 MG TAB PO SCH ×2 (05:33→17:31)
[2019-08-03] MEDS: ACETAMINOPHEN 325 MG TABLET PO PRN ×2 (05:36→17:40)
[2019-08-03] MEDS: LACTOBACILLUS CHEW TABLET PO SCH ×3 (08:49→20:22)
[2019-08-03] MEDS: SENNA/DOCUSATE TABLET PO SCH (08:50)
[2019-08-03 09:35] VITALS: BP 116/78
[2019-08-03 14:28] VITALS: BP 106/67
[2019-08-03 20:26] VITALS: BP 108/68
[2019-08-04 00:37] VITALS: BP 104/66
[2019-08-04] MEDS: ACETAMINOPHEN 325 MG TABLET PO PRN ×3 (03:34→20:35)
[2019-08-04] MEDS: METOPROLOL TARTRATE 25 MG TAB PO SCH ×2 (05:42→16:32)
[2019-08-04 08:13] VITALS: BP 129/78
[2019-08-04] MEDS: LACTOBACILLUS CHEW TABLET PO SCH ×3 (11:14→20:35)
[2019-08-04] MEDS: SENNA/DOCUSATE TABLET PO SCH (11:15)
[2019-08-04 14:19] VITALS: BP 110/68
[2019-08-04 18:30] VITALS: BP 105/62
[2019-08-05 00:39] VITALS: BP 106/63
[2019-08-05 05:17] LABS: BASOPHILS # (AUTO) 0.05 x10^3/uL (0-0.1); BASOPHILS % (AUTO) 1 % (0-1); EOSINOPHILS # (AUTO) 0.82 x10^3/uL (0-0.4); EOSINOPHILS % (AUTO) 12 % (1-7); LYMPHOCYTES # (AUTO) 2.37 x10^3/uL (1-3.4); LYMPHOCYTES % (AUTO) 35 % (22-44); MD NO; MEAN CORPUSCULAR HEMOGLOBIN 31.7 pg (27.5-34.5); MEAN CORPUSCULAR HGB CONC 33.7 g/dL (33.2-36.2); MEAN CORPUSCULAR VOLUME 94.2 fL (81-97); MEAN PLATELET VOLUME 6.5 fL (7.4-10.4); MONOCYTES # (AUTO) 0.59 x10^3/uL (0.2-0.8); MONOCYTES % (AUTO) 9 % (2-9); NEUTROPHILS # (AUTO) 2.98 x10^3/uL (1.8-6.8); NEUTROPHILS % (AUTO) 44 % (42-75); PLATELET COUNT 310 x10^3/uL (130-400); RED BLOOD COUNT 4.34 x10^6/uL (4.38-5.82); RED CELL DISTRIBUTION WIDTH 12.9 % (9.4-14.8)
[2019-08-05 05:26] LABS: ANION GAP 6 mmol/L (5-15); CALCIUM 8.5 mg/dL (8.5-10.1); CHLORIDE 111 mmol/L (98-107)
[2019-08-05 05:27] LABS: CREATININE 0.69 mg/dL (0.7-1.3)
[2019-08-05] MEDS: METOPROLOL TARTRATE 25 MG TAB PO SCH ×2 (06:10→15:45)
[2019-08-05 07:01] VITALS: BP 119/75
[2019-08-05] MEDS: SENNA/DOCUSATE TABLET PO SCH (11:00)
[2019-08-05] MEDS: LACTOBACILLUS CHEW TABLET PO SCH ×3 (11:00→21:46)
[2019-08-05 12:44] VITALS: BP 121/74
[2019-08-05] MEDS: ACETAMINOPHEN 325 MG TABLET PO PRN ×2 (15:35→21:46)
[2019-08-05 19:36] VITALS: BP 127/74
[2019-08-06 02:30] VITALS: BP 132/74
[2019-08-06] MEDS: ACETAMINOPHEN 325 MG TABLET PO PRN ×2 (03:59→19:29)
[2019-08-06] MEDS: PANTOPRAZOLE 40MG TABLET PO SCH (06:16)
[2019-08-06] MEDS: METOPROLOL TARTRATE 25 MG TAB PO SCH ×2 (06:16→16:07)
[2019-08-06 06:58] VITALS: BP 126/77
[2019-08-06] MEDS: BISACODYL 10 MG SUPP PR ONE ×2 (09:00→11:15)
[2019-08-06] MEDS: POLYETHYLENE GLYCOL 17 GM PACKET NG SCH (11:14)
[2019-08-06] MEDS: LACTOBACILLUS CHEW TABLET PO SCH ×3 (11:15→21:46)
[2019-08-06] MEDS: SENNA/DOCUSATE TABLET PO SCH (11:15)
[2019-08-06 12:46] VITALS: BP 121/78
[2019-08-06 19:40] VITALS: BP 115/68
[2019-08-07] MEDS: ACETAMINOPHEN 325 MG TABLET PO PRN ×3 (01:31→18:38)
[2019-08-07 02:28] VITALS: BP 104/65
[2019-08-07] MEDS: PANTOPRAZOLE 40MG TABLET PO SCH (05:41)
[2019-08-07] MEDS: METOPROLOL TARTRATE 25 MG TAB PO SCH ×2 (05:41→16:46)
[2019-08-07] MEDS: SENNA/DOCUSATE TABLET PO SCH (09:00)
[2019-08-07 09:01] VITALS: BP 98/60
[2019-08-07] MEDS: POLYETHYLENE GLYCOL 17 GM PACKET NG SCH (09:33)
[2019-08-07] MEDS: LACTOBACILLUS CHEW TABLET PO SCH ×3 (09:33→21:36)
[2019-08-07 11:48] VITALS: BP 100/59
[2019-08-07 12:06] VITALS: BP 109/63
[2019-08-07 16:45] VITALS: BP 128/68
[2019-08-07 19:58] VITALS: BP 106/67
[2019-08-08 01:07] VITALS: BP 104/64
[2019-08-08] MEDS: METOPROLOL TARTRATE 25 MG TAB PO SCH ×2 (05:55→18:16)
[2019-08-08] MEDS: PANTOPRAZOLE 40MG TABLET PO SCH (05:55)
[2019-08-08 07:47] VITALS: BP 109/64
[2019-08-08] MEDS: POLYETHYLENE GLYCOL 17 GM PACKET NG SCH (09:00)
[2019-08-08] MEDS: LACTOBACILLUS CHEW TABLET PO SCH ×3 (10:09→22:35)
[2019-08-08] MEDS: SENNA/DOCUSATE TABLET PO SCH (10:09)
[2019-08-08 14:00] VITALS: BP 102/67
[2019-08-08 19:54] VITALS: BP 122/72
[2019-08-08] MEDS: ACETAMINOPHEN 325 MG TABLET PO PRN (21:39)
[2019-08-09 01:36] VITALS: BP 122/75
[2019-08-09] MEDS: PANTOPRAZOLE 40MG TABLET PO SCH (06:01)
[2019-08-09] MEDS: METOPROLOL TARTRATE 25 MG TAB PO SCH ×2 (06:02→17:01)
[2019-08-09 07:09] VITALS: BP 122/74
[2019-08-09] MEDS: POLYETHYLENE GLYCOL 17 GM PACKET NG SCH (09:27)
[2019-08-09] MEDS: LACTOBACILLUS CHEW TABLET PO SCH ×3 (09:28→20:16)
[2019-08-09] MEDS: SENNA/DOCUSATE TABLET PO SCH (09:28)
[2019-08-09] MEDS: ACETAMINOPHEN 325 MG TABLET PO PRN ×2 (11:25→20:20)
[2019-08-09 13:09] VITALS: BP 104/67
[2019-08-09 19:30] VITALS: BP 136/72
[2019-08-10 02:38] VITALS: BP 121/75
[2019-08-10] MEDS: ACETAMINOPHEN 325 MG TABLET PO PRN ×2 (02:39→19:36)
[2019-08-10] MEDS: METOPROLOL TARTRATE 25 MG TAB PO SCH ×2 (05:59→16:42)
[2019-08-10] MEDS: PANTOPRAZOLE 40MG TABLET PO SCH (05:59)
[2019-08-10 07:48] VITALS: BP 125/75
[2019-08-10] MEDS: SENNA/DOCUSATE TABLET PO SCH (09:00)
[2019-08-10] MEDS: POLYETHYLENE GLYCOL 17 GM PACKET NG SCH (09:00)
[2019-08-10] MEDS: LACTOBACILLUS CHEW TABLET PO SCH ×3 (09:43→19:36)
[2019-08-10 14:18] VITALS: BP 121/74
[2019-08-10 19:31] VITALS: BP 119/78
[2019-08-11 00:53] VITALS: BP 128/78
[2019-08-11] MEDS: ACETAMINOPHEN 325 MG TABLET PO PRN ×2 (02:05→17:54)
[2019-08-11] MEDS: METOPROLOL TARTRATE 25 MG TAB PO SCH ×2 (05:56→17:50)
[2019-08-11] MEDS: PANTOPRAZOLE 40MG TABLET PO SCH (05:56)
[2019-08-11 06:36] VITALS: BP 121/80
[2019-08-11] MEDS: POLYETHYLENE GLYCOL 17 GM PACKET NG SCH (10:06)
[2019-08-11] MEDS: SENNA/DOCUSATE TABLET PO SCH (10:07)
[2019-08-11] MEDS: LACTOBACILLUS CHEW TABLET PO SCH ×3 (10:14→20:39)
[2019-08-11 13:35] VITALS: BP 118/70
[2019-08-11 20:04] VITALS: BP 101/64
[2019-08-12] MEDS: ACETAMINOPHEN 325 MG TABLET PO PRN (00:13)
[2019-08-12 02:55] VITALS: BP 107/64
[2019-08-12 05:44] VITALS: BP 124/76
[2019-08-12] MEDS: METOPROLOL TARTRATE 25 MG TAB PO SCH ×2 (05:52→18:38)
[2019-08-12] MEDS: PANTOPRAZOLE 40MG TABLET PO SCH (05:52)
[2019-08-12] MEDS: POLYETHYLENE GLYCOL 17 GM PACKET NG SCH (09:00)
[2019-08-12] MEDS: SENNA/DOCUSATE TABLET PO SCH (09:00)
[2019-08-12 09:16] VITALS: BP 120/74
[2019-08-12] MEDS: LACTOBACILLUS CHEW TABLET PO SCH ×3 (11:17→20:14)
[2019-08-12 13:29] VITALS: BP 127/78
[2019-08-12 19:39] VITALS: BP 128/76
[2019-08-13] MEDS: ACETAMINOPHEN 325 MG TABLET PO PRN ×2 (00:52→17:45)
[2019-08-13 01:38] VITALS: BP 131/73
[2019-08-13 05:41] VITALS: BP 149/92
[2019-08-13] MEDS: PANTOPRAZOLE 40MG TABLET PO SCH (05:42)
[2019-08-13] MEDS: METOPROLOL TARTRATE 25 MG TAB PO SCH ×2 (05:42→17:40)
[2019-08-13 07:41] VITALS: BP 129/73
[2019-08-13 07:46] VITALS: BP 135/84
[2019-08-13] MEDS: LACTOBACILLUS CHEW TABLET PO SCH ×3 (10:26→20:48)
[2019-08-13] MEDS: POLYETHYLENE GLYCOL 17 GM PACKET NG SCH (10:26)
[2019-08-13] MEDS: SENNA/DOCUSATE TABLET PO SCH (10:26)
--- NOTE | 2019-08-13 13:01 | NUR ---
08/13/2019--PT dispo d/c SNF for therapies 5x/week in order to return to [facility]. will follow. Addendum: 08/13/19 at 1301 by Elmer Perry PT Amended: Links added.
[2019-08-13 13:14] VITALS: BP 110/72
[2019-08-13 18:26] VITALS: BP 121/74
[2019-08-14 00:17] VITALS: BP 120/73
[2019-08-14] MEDS: ACETAMINOPHEN 325 MG TABLET PO PRN ×2 (02:41→18:54)
[2019-08-14 05:12] VITALS: BP 120/79
[2019-08-14] MEDS: METOPROLOL TARTRATE 25 MG TAB PO SCH ×2 (05:15→18:22)
[2019-08-14] MEDS: PANTOPRAZOLE 40MG TABLET PO SCH (05:16)
[2019-08-14 07:37] VITALS: BP 101/62
[2019-08-14] MEDS: SENNA/DOCUSATE TABLET PO SCH (09:00)
[2019-08-14] MEDS: LACTOBACILLUS CHEW TABLET PO SCH ×3 (10:25→20:48)
[2019-08-14] MEDS: POLYETHYLENE GLYCOL 17 GM PACKET NG SCH (10:25)
[2019-08-14 14:57] VITALS: BP 111/75
[2019-08-14 20:20] VITALS: BP 105/66
[2019-08-15 01:38] VITALS: BP 122/72
[2019-08-15 05:28] VITALS: BP 125/79
[2019-08-15] MEDS: METOPROLOL TARTRATE 25 MG TAB PO SCH ×2 (05:29→16:53)
[2019-08-15] MEDS: PANTOPRAZOLE 40MG TABLET PO SCH (05:29)
[2019-08-15 08:41] VITALS: BP 115/68
[2019-08-15] MEDS: SENNA/DOCUSATE TABLET PO SCH (10:09)
[2019-08-15] MEDS: POLYETHYLENE GLYCOL 17 GM PACKET NG SCH (10:09)
[2019-08-15] MEDS: LACTOBACILLUS CHEW TABLET PO SCH ×3 (10:09→21:35)
[2019-08-15 12:55] VITALS: BP 115/68
[2019-08-15] MEDS: ACETAMINOPHEN 325 MG TABLET PO PRN (16:52)
[2019-08-15 20:39] VITALS: BP 126/74
[2019-08-16 02:38] VITALS: BP 135/80
[2019-08-16] MEDS: PANTOPRAZOLE 40MG TABLET PO SCH (05:39)
[2019-08-16] MEDS: METOPROLOL TARTRATE 25 MG TAB PO SCH ×2 (05:40→18:26)
[2019-08-16] MEDS: POLYETHYLENE GLYCOL 17 GM PACKET NG SCH (09:00)
[2019-08-16] MEDS: LACTOBACILLUS CHEW TABLET PO SCH ×3 (09:00→21:17)
[2019-08-16] MEDS: SENNA/DOCUSATE TABLET PO SCH (09:00)
[2019-08-16 13:42] VITALS: BP 143/87
[2019-08-16] MEDS: ACETAMINOPHEN 325 MG TABLET PO PRN (18:26)
[2019-08-16 19:48] VITALS: BP 113/71
[2019-08-17] MEDS: ACETAMINOPHEN 325 MG TABLET PO PRN ×2 (01:13→18:57)
[2019-08-17 01:26] VITALS: BP 117/73
[2019-08-17] MEDS: PANTOPRAZOLE 40MG TABLET PO SCH (05:51)
[2019-08-17] MEDS: METOPROLOL TARTRATE 25 MG TAB PO SCH ×2 (05:53→18:23)
[2019-08-17 06:58] VITALS: BP 115/74
[2019-08-17] MEDS: LACTOBACILLUS CHEW TABLET PO SCH (10:57)
[2019-08-17] MEDS: SENNA/DOCUSATE TABLET PO SCH (10:57)
[2019-08-17] MEDS: POLYETHYLENE GLYCOL 17 GM PACKET NG SCH (10:58)
[2019-08-17 13:55] VITALS: BP 120/70
[2019-08-17 19:00] VITALS: BP 131/75
[2019-08-18 00:59] VITALS: BP 131/87
[2019-08-18] MEDS: PANTOPRAZOLE 40MG TABLET PO SCH (06:08)
[2019-08-18] MEDS: METOPROLOL TARTRATE 25 MG TAB PO SCH ×2 (06:08→16:59)
[2019-08-18 07:39] VITALS: BP 115/71
[2019-08-18] MEDS: LACTOBACILLUS CHEW TABLET PO SCH (10:41)
[2019-08-18] MEDS: SENNA/DOCUSATE TABLET PO SCH (10:41)
[2019-08-18] MEDS: POLYETHYLENE GLYCOL 17 GM PACKET NG SCH (10:41)
[2019-08-18 14:10] VITALS: BP 131/75
[2019-08-18] MEDS: ACETAMINOPHEN 325 MG TABLET PO PRN (19:24)
[2019-08-18 19:38] VITALS: BP 120/73
[2019-08-19 02:57] VITALS: BP 115/71
[2019-08-19] MEDS: PANTOPRAZOLE 40MG TABLET PO SCH (05:48)
[2019-08-19] MEDS: METOPROLOL TARTRATE 25 MG TAB PO SCH ×2 (05:49→16:15)
[2019-08-19 07:31] VITALS: BP 111/74
[2019-08-19] MEDS: SENNA/DOCUSATE TABLET PO SCH (11:06)
[2019-08-19] MEDS: POLYETHYLENE GLYCOL 17 GM PACKET NG SCH (11:07)
[2019-08-19] MEDS: LACTOBACILLUS CHEW TABLET PO SCH (11:07)
[2019-08-19] MEDS: ACETAMINOPHEN 325 MG TABLET PO PRN ×2 (11:43→19:12)
[2019-08-19 13:33] VITALS: BP 124/80
[2019-08-19 13:51] VITALS: BP_SYST 113; BP_SYST 138; BP_DIAS 67; BP_DIAS 92
[2019-08-19] MEDS ORDERED: MECLIZINE 12.5 MG TABLET PO PRN (14:00)
[2019-08-19 16:13] VITALS: BP 125/78
[2019-08-19 20:07] VITALS: BP 120/62
[2019-08-20 03:08] VITALS: BP 115/69
[2019-08-20] MEDS: PANTOPRAZOLE 40MG TABLET PO SCH (06:25)
[2019-08-20] MEDS: METOPROLOL TARTRATE 25 MG TAB PO SCH ×2 (06:25→17:30)
[2019-08-20 07:37] VITALS: BP 135/83
[2019-08-20] MEDS: POLYETHYLENE GLYCOL 17 GM PACKET NG SCH (09:54)
[2019-08-20] MEDS: LACTOBACILLUS CHEW TABLET PO SCH (09:54)
[2019-08-20] MEDS: SENNA/DOCUSATE TABLET PO SCH (09:54)
[2019-08-20 15:59] VITALS: BP 139/77
[2019-08-20 18:40] VITALS: BP 124/72
[2019-08-20] MEDS: ACETAMINOPHEN 325 MG TABLET PO PRN (19:37)
[2019-08-21 00:47] VITALS: BP 133/83
[2019-08-21] MEDS: PANTOPRAZOLE 40MG TABLET PO SCH (05:21)
[2019-08-21] MEDS: METOPROLOL TARTRATE 25 MG TAB PO SCH ×2 (05:22→17:04)
[2019-08-21 07:13] VITALS: BP 125/79
[2019-08-21] MEDS: POLYETHYLENE GLYCOL 17 GM PACKET NG SCH (09:00)
[2019-08-21] MEDS: SENNA/DOCUSATE TABLET PO SCH (09:57)
[2019-08-21] MEDS: LACTOBACILLUS CHEW TABLET PO SCH (09:57)
[2019-08-21 13:25] VITALS: BP 133/82
[2019-08-21 19:43] VITALS: BP 121/74
[2019-08-21] MEDS: ACETAMINOPHEN 325 MG TABLET PO PRN (19:46)
[2019-08-22 00:57] VITALS: BP 142/74
[2019-08-22] MEDS: PANTOPRAZOLE 40MG TABLET PO SCH (06:17)
[2019-08-22] MEDS: METOPROLOL TARTRATE 25 MG TAB PO SCH ×2 (06:17→17:33)
[2019-08-22 07:38] VITALS: BP 116/61
[2019-08-22] MEDS: LACTOBACILLUS CHEW TABLET PO SCH (10:46)
[2019-08-22] MEDS: POLYETHYLENE GLYCOL 17 GM PACKET NG SCH (10:46)
[2019-08-22] MEDS: SENNA/DOCUSATE TABLET PO SCH (10:46)
[2019-08-22 12:03] VITALS: BP 144/91
[2019-08-22] MEDS: ACETAMINOPHEN 325 MG TABLET PO PRN (19:20)
[2019-08-22 19:34] VITALS: BP 131/80
[2019-08-23 01:07] VITALS: BP 131/80
[2019-08-23 06:22] VITALS: BP 132/84
[2019-08-23] MEDS: PANTOPRAZOLE 40MG TABLET PO SCH (06:24)
[2019-08-23] MEDS: METOPROLOL TARTRATE 25 MG TAB PO SCH ×2 (06:24→17:26)
[2019-08-23] MEDS: SENNA/DOCUSATE TABLET PO SCH (08:40)
[2019-08-23] MEDS: LACTOBACILLUS CHEW TABLET PO SCH (08:40)
[2019-08-23] MEDS: POLYETHYLENE GLYCOL 17 GM PACKET NG SCH (08:40)
[2019-08-23 13:30] VITALS: BP 118/68
[2019-08-23 19:51] VITALS: BP 117/71
[2019-08-23] MEDS: ACETAMINOPHEN 325 MG TABLET PO PRN (21:15)
[2019-08-24 01:23] VITALS: BP 123/75
[2019-08-24] MEDS: PANTOPRAZOLE 40MG TABLET PO SCH (05:39)
[2019-08-24] MEDS: METOPROLOL TARTRATE 25 MG TAB PO SCH ×2 (05:39→18:01)
[2019-08-24 07:50] VITALS: BP 115/64
[2019-08-24] MEDS: POLYETHYLENE GLYCOL 17 GM PACKET NG SCH (08:27)
[2019-08-24] MEDS: LACTOBACILLUS CHEW TABLET PO SCH (08:27)
[2019-08-24] MEDS: SENNA/DOCUSATE TABLET PO SCH (08:27)
[2019-08-24 14:24] VITALS: BP 111/70
[2019-08-24 17:55] VITALS: BP 110/72
[2019-08-24] MEDS: ACETAMINOPHEN 325 MG TABLET PO PRN (18:37)
[2019-08-24 20:10] VITALS: BP 112/71
[2019-08-25 02:00] VITALS: BP 111/70
[2019-08-25] MEDS: PANTOPRAZOLE 40MG TABLET PO SCH (05:54)
[2019-08-25] MEDS: METOPROLOL TARTRATE 25 MG TAB PO SCH ×2 (05:54→17:53)
[2019-08-25 06:32] VITALS: BP 123/69
[2019-08-25 07:23] VITALS: BP 147/95
[2019-08-25] MEDS: SENNA/DOCUSATE TABLET PO SCH (08:38)
[2019-08-25] MEDS: LACTOBACILLUS CHEW TABLET PO SCH (08:38)
[2019-08-25] MEDS: POLYETHYLENE GLYCOL 17 GM PACKET NG SCH (08:38)
[2019-08-25 14:45] VITALS: BP 118/68
[2019-08-25 16:19] VITALS: BP 128/70
[2019-08-25 19:20] VITALS: BP 113/68
[2019-08-25] MEDS: ACETAMINOPHEN 325 MG TABLET PO PRN (19:24)
[2019-08-26 01:03] VITALS: BP 104/67
[2019-08-26] MEDS: PANTOPRAZOLE 40MG TABLET PO SCH (05:35)
[2019-08-26] MEDS: METOPROLOL TARTRATE 25 MG TAB PO SCH ×2 (05:35→16:58)
[2019-08-26 05:55] LABS: BASOPHILS # (AUTO) 0.06 x10^3/uL (0-0.1); BASOPHILS % (AUTO) 1 % (0-1); EOSINOPHILS # (AUTO) 0.56 x10^3/uL (0-0.4); EOSINOPHILS % (AUTO) 6 % (1-7); LYMPHOCYTES # (AUTO) 2.16 x10^3/uL (1-3.4); LYMPHOCYTES % (AUTO) 25 % (22-44); MD NO; MEAN CORPUSCULAR HEMOGLOBIN 31.6 pg (27.5-34.5); MEAN CORPUSCULAR HGB CONC 33.4 g/dL (33.2-36.2); MEAN CORPUSCULAR VOLUME 94.4 fL (81-97); MEAN PLATELET VOLUME 6.6 fL (7.4-10.4); MONOCYTES # (AUTO) 0.67 x10^3/uL (0.2-0.8); MONOCYTES % (AUTO) 8 % (2-9); NEUTROPHILS % (AUTO) 60 % (42-75); PLATELET COUNT 355 x10^3/uL (130-400); RED BLOOD COUNT 4.76 x10^6/uL (4.38-5.82); RED CELL DISTRIBUTION WIDTH 14.2 % (9.4-14.8)
[2019-08-26 06:05] LABS: CHLORIDE 110 mmol/L (98-107)
[2019-08-26 06:11] LABS: ALANINE AMINOTRANSFERASE 48 U/L (12-78); ALBUMIN 3.5 g/dL (3.4-5.0); ALKALINE PHOSPHATASE 70 U/L (45-117); ANION GAP 5 mmol/L (5-15); BILIRUBIN,TOTAL 0.3 mg/dL (0.2-1.0); CALCIUM 8.7 mg/dL (8.5-10.1); CREATININE 0.83 mg/dL (0.7-1.3); TOTAL PROTEIN 7.4 g/dL (6.4-8.2)
[2019-08-26 08:15] VITALS: BP 123/70
[2019-08-26] MEDS: POLYETHYLENE GLYCOL 17 GM PACKET NG SCH (08:30)
[2019-08-26] MEDS: SENNA/DOCUSATE TABLET PO SCH (08:30)
[2019-08-26] MEDS: LACTOBACILLUS CHEW TABLET PO SCH (08:31)
[2019-08-26 11:15] VITALS: BP 121/77
[2019-08-26 14:45] VITALS: BP 127/79
[2019-08-26 16:57] VITALS: BP 143/75
[2019-08-26 18:56] VITALS: BP 130/75
[2019-08-27 01:33] VITALS: BP 117/76
[2019-08-27] MEDS: PANTOPRAZOLE 40MG TABLET PO SCH (06:08)
[2019-08-27] MEDS: METOPROLOL TARTRATE 25 MG TAB PO SCH ×2 (06:09→19:19)
[2019-08-27 07:00] VITALS: BP 118/69
[2019-08-27] MEDS: POLYETHYLENE GLYCOL 17 GM PACKET NG SCH (09:00)
[2019-08-27] MEDS: SENNA/DOCUSATE TABLET PO SCH (09:00)
[2019-08-27] MEDS: LACTOBACILLUS CHEW TABLET PO SCH (10:04)
[2019-08-27] MEDS: ACETAMINOPHEN 325 MG TABLET PO PRN (10:05)
[2019-08-27 12:12] VITALS: BP 131/8
[2019-08-27 19:11] VITALS: BP 144/83
[2019-08-28 00:42] VITALS: BP 111/68
[2019-08-28] MEDS: METOPROLOL TARTRATE 25 MG TAB PO SCH ×2 (06:14→17:00)
[2019-08-28] MEDS: PANTOPRAZOLE 40MG TABLET PO SCH (06:14)
[2019-08-28 06:59] VITALS: BP 119/67
[2019-08-28] MEDS: LACTOBACILLUS CHEW TABLET PO SCH (08:12)
[2019-08-28] MEDS: SENNA/DOCUSATE TABLET PO SCH (08:12)
[2019-08-28] MEDS: POLYETHYLENE GLYCOL 17 GM PACKET NG SCH (08:12)
[2019-08-28] MEDS: ACETAMINOPHEN 325 MG TABLET PO PRN (15:07)
[2019-08-28 15:12] VITALS: BP 138/85
[2019-08-28 21:01] VITALS: BP 132/73
[2019-08-29 00:35] VITALS: BP 125/69
[2019-08-29] MEDS: PANTOPRAZOLE 40MG TABLET PO SCH (05:48)
[2019-08-29] MEDS: METOPROLOL TARTRATE 25 MG TAB PO SCH ×2 (05:48→17:56)
[2019-08-29 07:16] VITALS: BP 105/69
[2019-08-29] MEDS: POLYETHYLENE GLYCOL 17 GM PACKET NG SCH (09:00)
[2019-08-29] MEDS: SENNA/DOCUSATE TABLET PO SCH ×2 (09:00→09:15)
[2019-08-29] MEDS: LACTOBACILLUS CHEW TABLET PO SCH (09:13)
[2019-08-29 11:56] VITALS: BP 115/72
[2019-08-29 14:29] VITALS: BP 125/77
[2019-08-29] MEDS ORDERED: HYDR-3341 PO (15:03)
[2019-08-29] MEDS ORDERED: PANT40TA5 PO (15:03)
[2019-08-29] MEDS ORDERED: METO25TA35 PO (15:03)
[2019-08-29 17:55] VITALS: BP 118/72
[2019-08-29] MEDS: ACETAMINOPHEN 325 MG TABLET PO PRN (17:56)
[2019-08-29 18:56] VITALS: BP 120/73
[2019-08-30] VITALS: BP 119/74
[2019-08-30] MEDS: PANTOPRAZOLE 40MG TABLET PO SCH (06:08)
[2019-08-30] MEDS: METOPROLOL TARTRATE 25 MG TAB PO SCH (06:09)
[2019-08-30 06:35] VITALS: BP 108/71
[2019-08-30] MEDS: POLYETHYLENE GLYCOL 17 GM PACKET NG SCH (08:42)
[2019-08-30] MEDS: LACTOBACILLUS CHEW TABLET PO SCH (08:42)
[2019-08-30] MEDS: SENNA/DOCUSATE TABLET PO SCH (08:42)
[2019-08-30 11:00] VITALS: BP 124/74
== END 2019-08-30 11:31 | DRG 21 ==
LOC: ED 12:31 → EDIP 12:40 → EDBD 12:40 → CCU 14:41 → 4NW 04-26 05:40 → 3N 05-03 05:50
PROVIDERS: ADMIT Internal Medicine; ATTEND Family Medicine
PROC: 00C70ZZ Extirpation of Matter from Cerebral Hemisphere, Open Approach (ICD-10-PCS; 2019-04-11)
PROC: 03HY32Z Insertion of Monitoring Device into Upper Artery, Percutaneous Approach (ICD-10-PCS; principal; 2019-04-11 12:30)
PROC: 4A103BD Monitoring of Intracranial Pressure, Percutaneous Approach (ICD-10-PCS; 2019-04-13)
PROC: 00H032Z Insertion of Monitoring Device into Brain, Percutaneous Approach (ICD-10-PCS; 2019-04-13)
PROC: 0DH63UZ Insertion of Feeding Device into Stomach, Percutaneous Approach (ICD-10-PCS; 2019-04-26)
PROC: 5A1955Z Respiratory Ventilation, Greater than 96 Consecutive Hours (ICD-10-PCS; 2019-06-22)
PROC: 0BH17EZ Insertion of Endotracheal Airway into Trachea, Via Natural or Artificial Opening (ICD-10-PCS; 2019-06-22)
PROC: 0DP6XUZ Removal of Feeding Device from Stomach, External Approach (ICD-10-PCS; 2019-08-01)
PROC: 0DB58ZX Excision of Esophagus, Via Natural or Artificial Opening Endoscopic, Diagnostic (ICD-10-PCS; 2019-08-01)
DX: I61.0 Nontraumatic intracerebral hemorrhage in hemisphere, subcortical (principal); J96.01 Acute respiratory failure with hypoxia; J69.0 Pneumonitis due to inhalation of food and vomit; G93.6 Cerebral edema; G93.41 Metabolic encephalopathy; Z99.11 Dependence on respirator [ventilator] status; R13.12 Dysphagia, oropharyngeal phase; R63.3 Feeding difficulties; E87.3 Alkalosis; E83.51 Hypocalcemia; Z66 Do not resuscitate; M62.82 Rhabdomyolysis; D53.9 Nutritional anemia, unspecified; E88.09 Other disorders of plasma-protein metabolism, not elsewhere classified; D75.89 Other specified diseases of blood and blood-forming organs; E87.6 Hypokalemia; F10.10 Alcohol abuse, uncomplicated; F17.200 Nicotine dependence, unspecified, uncomplicated; G81.94 Hemiplegia, unspecified affecting left nondominant side; I10 Essential (primary) hypertension; I16.1 Hypertensive emergency; I25.10 Atherosclerotic heart disease of native coronary artery without angina pectoris; J98.11 Atelectasis; K20.0 Eosinophilic esophagitis; K59.03 Drug induced constipation; R41.4 Neurologic neglect syndrome; R47.01 Aphasia; S00.03XA Contusion of scalp, initial encounter; T40.605A Adverse effect of unspecified narcotics, initial encounter; Z51.5 Encounter for palliative care; Z86.73 Personal history of transient ischemic attack (TIA), and cerebral infarction without residual deficits; I25.2 Old myocardial infarction; Z99.3 Dependence on wheelchair
CPT/HCPCS: 36415; 36600; 70450; 71045; 74018; 74230; 80048; 80053; 80202; 80307; 81001; 81003; 82550; 82607; 82803; 82962; 83735; 83930; 83935; 84100; 84300; 84443; 84478; 84484; 85025; 85610; 87040; 87070; 87081; 87086; 87205; 88305; 93005; 94002; 94003; 94640; 96374; 99291; B4087; C1713; C1729; G0378; J0171; J0295; J0690; J1100; J1170; J1953; J2185; J2543; J2704; J3010; J3370; J3480; 92523-GN; C1781; G0515-GN; J0360; J2060; J2150; J2270; J2370; J3490; J7030; J7040; J7050; Q0163